=== PATIENT | male | born 1955 | race Caucasian/White ===

== ENCOUNTER → 2020-03-09 15:24 | Outpatient (CLI) | payer OTHER, MEDICAID, SELFPAY | PROVIDERS: Visit Provider Physician Assistant | DX: N30.01 Acute cystitis with hematuria (principal) | CPT/HCPCS: 87077; 87086; 87186 ==

== ENCOUNTER → 2020-11-16 16:14 | Outpatient (CLI) | payer OTHER, MEDICAID, SELFPAY ==
[2020-11-16] MEDS: COVID-19 VACC #1, MRNA(MOD) 100 MCG/0.5 ML VIAL IM (16:22)
== END ==
PROVIDERS: Visit Provider Internal Medicine
DX: Z23 Encounter for immunization (principal)
CPT/HCPCS: 0011A; 91301

== ENCOUNTER → 2020-12-14 09:34 | Outpatient (CLI) | payer OTHER, MEDICAID, SELFPAY ==
[2020-12-14] MEDS: COVID-19 VACC #2, MRNA(MOD) 100 MCG/0.5 ML VIAL IM (09:46)
== END ==
PROVIDERS: Visit Provider Internal Medicine
DX: Z23 Encounter for immunization (principal)
CPT/HCPCS: 0012A; 91301

== ENCOUNTER 2022-06-03 12:16 | Inpatient (IN) | payer MEDICARE, MEDICAID, SELFPAY ==
[2022-06-03] VITALS (14 sets, daily range): BP systolic 126–187; BP diastolic 55–83; PULSE 63–85; RESP 18–28; TEMP 36.8–37.4; O2SAT 91–100; BMI 25.1
--- NOTE | 2022-06-03 12:49 | ED.MALEGU ---
HPI - Male Genitourinary General Chief complaint: Urogenital-Male Stated complaint: Bladder pain, hx enlarged prostate Time Seen by Provider: 06/03/22 12:48 Source: patient Mode of arrival: Ambulatory Limitations: no limitations History of Present Illness HPI Narrative: This is a 66-year-old male with likely but not formally diagnosed COPD continues to tobacco, BPH on saw palmetto and Advil daily. Patient states he is had pelvic pain for the last several days which has been increasing, he denies fevers or chills. No active nausea or vomiting. He states several days ago he had about 12 hours of frequent diarrhea that was not black or bloody since then he had some additional yesterday and has not had any additional since then. Patient states he occasionally has issues with stopping starting urination but has not noticed a worsening over the last several days, no dysuria, no frequency or sense of urgency. Patient denies rectal pain. Patient states no back or flank pain. He denies any major surgeries. He does use tobacco daily, denies illicit. Related Data Allergies Allergy/AdvReac Type Severity Reaction Status Date / Time morphine Allergy Intermediate Verified 03/09/20 14:51 Review of Systems Review of Systems ROS Unobtainable: All systems reviewed & are unremarkable except as noted in HPI and below Patient History Social History Smoking Status: Current every day smoker Smoking Status: Current every day smoker Substance Use Type: does not use Exam Narrative Exam Narrative: GENERAL: Alert and oriented x three, mild distress HEENT: Head normocephalic, atraumatic, EOMI, pupils reactive, face symmetric, moist mucous membranes NECK: Supple, full range of motion CARDIOVASCULAR: Regular rate and rhythm without murmurs, rubs or gallops. RESPIRATORY: Breath sounds equal bilaterally, no wheezes rales or rhonchi. ABDOMEN: Soft, positive for right lower quadrant which is moderate tenderness and mild pelvic tenderness. Normoactive bowel sounds all 4 quadrants. No guarding or rebound, rigidity, no mass. Nondistended. No inguinal hernia appreciated. : No CVA tenderness EXTREMITIES: Normal range of motion, no clubbing or edema. Neurovascularly intact NEUROLOGICAL: Cranial nerves II through XII grossly intact. Moving all extremities SKIN: Warm, dry, no petechiae, no rashes or lesions. Initial Vital Signs Initial Vital Signs: Vital Signs Temperature 98.3 F 06/03/22 12:28 Pulse Rate 85 06/03/22 12:28 Respiratory Rate 22 06/03/22 12:28 Blood Pressure 185/83 H 06/03/22 12:28 Pulse Oximetry 100 06/03/22 12:28 Oxygen Delivery Method 06/03/22 12:28 Course Orders Ordered: ED Orders 06/03/22 13:15 CT abdomen pelvis w con Stat CMP [Comprehensive Metabolic Panel] Stat Lipase Stat 06/03/22 13:50 CBC Auto Diff [Complete Blood Count AUTO DIFF] Stat Ictotest Urine Stat 06/03/22 14:04 Urine Culture Stat Urine Microscopic Stat 06/03/22 14:46 Blood Culture Stat Lactate (Lactic Acid) Stat 06/03/22 17:22 COVID19 -Nasal RAPID/Pre-Proc Stat Discontinued Medications Acetaminophen/Codeine Phosphate (Codeine/Acetaminophen 30/300 Tablet) 1 tab PO NOW ONE Stop: 06/03/22 17:10 Albuterol/Ipratropium (Albuterol/Ipratropium 3 Ml Ampul) 3 ml INH NOW ONE Stop: 06/03/22 15:16 Sodium Chloride (Normal Saline 0.9%) 1,000 mls @ 1,000 mls/hr IV BOLUS ONE Stop: 06/03/22 14:15 Last Admin: 06/03/22 14:20 Dose: 1,000 mls/hr Documented By: CASE Ceftriaxone Sodium 2,000 mg/ (Sodium Chloride) 100 mls @ 200 mls/hr IV NOW ONE Stop: 06/03/22 14:48 Last Infusion: 06/03/22 16:31 Dose: 0 mls/hr Documented By: Admin: 06/03/22 15:34 Dose: 200 mls/hr Documented By: RL Metronidazole (Flagyl) 500 mg in 100 mls @ 100 mls/hr IV NOW ONE Stop: 06/03/22 16:34 Last Admin: 06/03/22 16:31 Dose: 100 mls/hr Documented By: BT Consultations Consultation #1: Rads called CT findings to myself.? Certainly possible appendicitis, diverticulitis with possible abscess collection and appears to have 1 diverticulum that may communicate with the sigmoid bladder there is a single focus of air making this suspicious Time: 15:37 Consultation #2: Dr. Holloway, general surgery. Recommends IV antibiotics discussed patient has had Rocephin, Flagyl. She recommends is comfortable with this coverage but Cipro Flagyl or Zosyn Flagyl would also be appropriate. At this time recommends IV antibiotics to start, Carlos catheter if needed and decompression unlikely to require surgical intervention but if not improving or after several days of treatment has persistent change consistent with fistula then may require involvement of Urology. States DVT prophylaxis can be initiated. She would ask if patient can be admitted to medicine. Consultation #3: Urology, Dr. Duenas [facility]: Agrees with recommendations from general surgery and plan for IV antibiotics and re-evaluation. States patient surgery would really be more general surgery purvey even if requiring surgical intervetion. Additional Consultation(s): Dr. Payne, hospitalist. would like to review with general surgery in case of potential need he will recontact if any need for transfer after talking with general surgery. SPoke with general surgery, accepts for inpatient admission. Vital Signs Vital signs: Vital Signs - 8 hr 06/03/22 12:28 06/03/22 14:21 06/03/22 14:30 Temperature 98.3 F Pulse Rate 85 67 Respiratory Rate 22 Blood Pressure 185/83 H 126/55 L Pulse Oximetry 100 99 Oxygen Delivery Method Room Air 06/03/22 14:30 06/03/22 15:00 06/03/22 15:30 Temperature Pulse Rate 67 70 70 Respiratory Rate Blood Pressure Pulse Oximetry 99 100 100 Oxygen Delivery Method 06/03/22 16:00 06/03/22 16:30 Temperature Pulse Rate 79 78 Respiratory Rate Blood Pressure Pulse Oximetry 99 99 Oxygen Delivery Method MDM - Male Genitourinary Lab Data Result diagrams: 06/03/22 13:50 06/03/22 13:15 Labs: Lab Results 06/03/22 06/03/22 06/03/22 Range/Units 13:15 13:50 13:50 WBC 20.3 H (4.5-11.0) X10^3/uL RBC 4.78 (4.5-5.9) X10^6/uL Hgb 14.1 (13.5-17.5) g/dL Hct 41.3 (41-53) % MCV 86.5 (80-100) fL MCH 29.5 (26-34) PG MCHC 34.0 (30-36) % RDW 14.5 (11.6-14.8) % Plt Count 213 (150-400) X10^3/uL Neut % (Auto) 85.1 H (50-75) % Lymph % (Auto) 8.6 L (25-40) % [place] % (Auto) 5.9 (3-14) % Eos % (Auto) 0.2 L (2-4) % Baso % (Auto) 0.2 (0-2) % Neut # (Auto) 13799 H (7615-6950) /uL Lymph # (Auto) 1800 (1973-7332) /uL [place] # (Auto) 1200 H (0-900) /uL Eos # (Auto) 0 (0-450) /uL Baso # (Auto) 0 (0-100) /uL Sodium 139 (137-145) mmol/L Potassium 3.8 (3.4-5.1) mmol/L Chloride 102 (98-107) mmol/L Carbon Dioxide 23 (22-32) mmol/L BUN 22 H (9-20) mg/dL Creatinine 1.12 (0.66-1.25) mg/dL Estimated GFR > 60 (>60) mL/min BUN/Creatinine Ratio 19.6 (6-22) Glucose 119 H (80-110) mg/dL Lactate (0.7-2.1) mmol/L Calcium 8.7 (8.4-10.2) mg/dL Total Bilirubin 0.6 (0.2-1.3) mg/dL AST 21 (17-59) IU/L ALT 18 (<50) IU/L Alkaline Phosphatase 83 (38-126) U/L Total Protein 7.9 (6.3-8.2) g/dL Albumin 4.0 (3.5-5.0) g/dL Globulin 3.9 (1.7-4.1) g/dL Albumin/Globulin Ratio 1.0 (1.0-2.8) Lipase 32 (23-300) U/L Ur Bilirubin Confirm Positive H (Negative) Urine RBC (0-5/HPF) Urine WBC (0-5/HPF) Urine Bacteria (None) Granular Casts (None) Urine Mucus (Negative) Ur Culture Indicated? 10/23/22 10/23/22 Range/Units 14:04 14:46 WBC (4.5-11.0) X10^3/uL RBC (4.5-5.9) X10^6/uL Hgb (13.5-17.5) g/dL Hct (41-53) % MCV (80-100) fL MCH (26-34) PG MCHC (30-36) % RDW (11.6-14.8) % Plt Count (150-400) X10^3/uL Neut % (Auto) (50-75) % Lymph % (Auto) (25-40) % [place] % (Auto) (3-14) % Eos % (Auto) (2-4) % Baso % (Auto) (0-2) % Neut # (Auto) (9150-0292) /uL Lymph # (Auto) (3951-7051) /uL [place] # (Auto) (0-900) /uL Eos # (Auto) (0-450) /uL Baso # (Auto) (0-100) /uL Sodium (137-145) mmol/L Potassium (3.4-5.1) mmol/L Chloride (98-107) mmol/L Carbon Dioxide (22-32) mmol/L BUN (9-20) mg/dL Creatinine (0.66-1.25) mg/dL Estimated GFR (>60) mL/min BUN/Creatinine Ratio (6-22) Glucose (80-110) mg/dL Lactate 1.0 (0.7-2.1) mmol/L Calcium (8.4-10.2) mg/dL Total Bilirubin (0.2-1.3) mg/dL AST (17-59) IU/L ALT (<50) IU/L Alkaline Phosphatase (38-126) U/L Total Protein (6.3-8.2) g/dL Albumin (3.5-5.0) g/dL Globulin (1.7-4.1) g/dL Albumin/Globulin Ratio (1.0-2.8) Lipase (23-300) U/L Ur Bilirubin Confirm (Negative) Urine RBC 1-5/hpf (0-5/HPF) Urine WBC 10-30/hpf H (0-5/HPF) Urine Bacteria Many (>30) H (None) Granular Casts 1-5/lpf (None) Urine Mucus 1+ H (Negative) Ur Culture Indicated? Culture not indicate Urine Dip Bedside Urine Glucose Negative Bedside Urine Bilirubin + 1 Bedside Urine Ketone +/- 5 Urine Specific [place] 1.030 Bedside Urine Occult Blood + Bedside Urine pH 6.0 Bedside Urine Protein ++ 100 Bedside Urine Urobilinogen +/- 1mg Bedside Urine Nitrite + Positive Bedside Urine Leukocytes +/- [address] scan - abdomen/pelvis: Radiologist's Impression: Close Abdomen/Pelvis CT (Signed) Yael Skinner - 06/03/22 Launch?[place] [id number] CT Scan Report Signed Patient: Sonny Hitchcock MR#: [id number] : 1955 Acct:[id number] Age/Sex: 66 / M Date of Service: 06/03/22 Loc: ED Accession Number: [id number] ?? Procedure: CT abdomen pelvis w con Ordering Provider: Liliam Rouse D.O. PROCEDURE:? CT ABDOMEN PELVIS W CON ? INDICATIONS:? pelvic RLQ pain ? TECHNIQUE:? After the administration of intravenous contrast, axial sections acquired from the lung bases to the pubic symphysis.? Coronal and sagittal reformats were performed.? For radiation dose reduction, the following was used:? automated exposure control, adjustment of mA and/or kV according to patient size.? ? COMPARISON:? None. ? FINDINGS:? Image quality:? Excellent.? ? Lung bases:? Clear lung bases.? No hiatal hernia.? ? Heart:? Normal size heart without pericardial effusion. ? ABDOMEN: Liver:? No masses Gallbladder:? Normal wall thickness. Biliary ducts:? Nondilated. Pancreas:? Normal. Spleen:? Normal size. Adrenal Glands:? No nodules. Kidneys and Ureters:? Normal enhancement.? No hydronephrosis or hydroureter.? No calcifications. ? Stomach, Bowel and peritoneum:? There is considerable generalized fat stranding and inflammation throughout the lower abdomen and pelvis.? Small and large bowel heath are thickened and edematous.? The appendix is not well seen, potentially coursing posterior to the cecum amidst edema.? There is long segment wall thickening involving the entire sigmoid colon which has numerous diverticula.? Impacted diverticulum extends caudally towards the base of the bladder.? A small focus of intravesicular air suggests a colovesicular fistula.? There are a few small intraperitoneal peripherally enhancing fluid collections low anterior in the pelvis, the larger to the right of midline measuring 3.5 cm.? There is a peripherally enhancing wall.? Smaller is to the left of midline and more caudal without an enhancing wall. ? Proximally, the stomach is decompressed and there are a few small bowel loops with air-fluid levels.? Distally, the colon contains semi solid stool.? There is no free air in the abdomen.? No extraluminal gas visible. ? Ventral Wall: ? No hernias.? Abdominal Nodes:? There are several borderline periaortic retroperitoneal lymph nodes, probably reactive. Vessels:? Aorta and inferior vena cava are normal in size.? Moderate abdominal aortic atherosclerotic calcification.? ? PELVIS: Pelvic Organs:? Normal size prostate gland. Bladder:? Unremarkable.? ? Pelvic Nodes:? Borderline pelvic adenopathy including a 9 mm right external iliac node. Miscellaneous: No hernias are seen. ? ? ? Bones:? Unremarkable.? IMPRESSION:? ? 1. Generalized moderately severe inflammation and bowel wall thickening throughout the lower abdomen and pelvis, possibly related to ruptured acute appendicitis (more likely) and/or sigmoid diverticulitis. ? 2. Extensive diverticula present throughout the sigmoid colon including an impacted diverticulum which extends towards the anterior base of the urinary bladder.? Focus of air in the urinary bladder is highly suggestive of colovesicular fistula. ? 3. There are two discrete pelvic fluid collections anteriorly, the larger measuring up to 3.5 cm, adjacent to the cecum, and within enhancing wall suggestive of formed abscess. ? 4. Discussed with Dr. Liliam Rouse in the emergency room at 14:36 hours [place] daylight time.? ? ? Dictated by: Yael Skinner M.D. on 06/03/2022 at 14:20 ? ? Approved by: Yael Skinner M.D. on 06/03/2022 at 14:38?? [facility] Narrative Medical decision making narrative: This is a 66-year-old male with complaint of suprapubic discomfort, patient suspects he has a UTI he had 1 about 2 years ago when he was found to have an enlarged prostate. He does not feel that he is currently retaining. He on exam does have some mild suprapubic tenderness but is more tender in his right lower quadrant he is never had an appendectomy. Also had frequent diarrhea about 3 days ago. Discussed with patient my suspicion for other intra-abdominal process is higher, we will still check a urine would recommend labs and CT abdomen pelvis to rule out appendicitis versus diverticulitis, colitis or other acute process. Patient has a white count of 22, lactate is normal, renal function, abdominal labs do not show any acute intra-abdominal process. Urine is nitrite positive with 10-30 wbc's, many bacteria. CT shows possible appendicitis but talking to radiologist she is difficulty actually visualizing that secondary to significant inflammation of the cecum and: Patient does have diverticulitis and appears to have a fluid collection consistent with abscess she does appreciate 1 diverticulum that seems to connect to the bladder with a single focus of air. Patient had antibiotics started, held on 30 cc/kilos fluid bolus as patient does not currently meet septic criteria and did initiate antibiotics. Discussed with General surgery, we do not have Urology coverage today. They recommended IV antibiotics, decompression of bladder and re-evaluation over the next day or so both Dr. Holloway and Dr. Duenas from [facility] to more fully evaluate if true fistula, allow antibiotics to decrease inflammation and then revisit if patient requires surgical intervention. Patient appears nontoxic, is not septic today. Discussed with hospitalist who also reviewed everything with the general surgeon and accepts for inpatient admission. Discharge Plan Departure Patient Disposition: Admitted As Inpatient Clinical Impression: Abdominal abscess, UTI (urinary tract infection), Diverticulitis, [place]-vesical fistula Admit Date/Time: 06/03/22 16:55 Admit Provider: Kervin Payne
--- NOTE | 2022-06-03 13:15 | DI.CT.S_ITS ---
PROCEDURE: CT ABDOMEN PELVIS W CON INDICATIONS: pelvic RLQ pain TECHNIQUE: After the administration of intravenous contrast, axial sections acquired from the lung bases to the pubic symphysis. Coronal and sagittal reformats were performed. For radiation dose reduction, the following was used: automated exposure control, adjustment of mA and/or kV according to patient size. COMPARISON: None. FINDINGS: Image quality: Excellent. Lung bases: Clear lung bases. No hiatal hernia. Heart: Normal size heart without pericardial effusion. ABDOMEN: Liver: No masses Gallbladder: Normal wall thickness. Biliary ducts: Nondilated. Pancreas: Normal. Spleen: Normal size. Adrenal Glands: No nodules. Kidneys and Ureters: Normal enhancement. No hydronephrosis or hydroureter. No calcifications. Stomach, Bowel and peritoneum: There is considerable generalized fat stranding and inflammation throughout the lower abdomen and pelvis. Small and large bowel heath are thickened and edematous. The appendix is not well seen, potentially coursing posterior to the cecum amidst edema. There is long segment wall thickening involving the entire sigmoid colon which has numerous diverticula. Impacted diverticulum extends caudally towards the base of the bladder. A small focus of intravesicular air suggests a colovesicular fistula. There are a few small intraperitoneal peripherally enhancing fluid collections low anterior in the pelvis, the larger to the right of midline measuring 3.5 cm. There is a peripherally enhancing wall. Smaller is to the left of midline and more caudal without an enhancing wall. Proximally, the stomach is decompressed and there are a few small bowel loops with air-fluid levels. Distally, the colon contains semi solid stool. There is no free air in the abdomen. No extraluminal gas visible. Ventral Wall: No hernias. Abdominal Nodes: There are several borderline periaortic retroperitoneal lymph nodes, probably reactive. Vessels: Aorta and inferior vena cava are normal in size. Moderate abdominal aortic atherosclerotic calcification. PELVIS: Pelvic Organs: Normal size prostate gland. Bladder: Unremarkable. Pelvic Nodes: Borderline pelvic adenopathy including a 9 mm right external iliac node. Miscellaneous: No hernias are seen. Bones: Unremarkable. IMPRESSION: 1. Generalized moderately severe inflammation and bowel wall thickening throughout the lower abdomen and pelvis, possibly related to ruptured acute appendicitis (more likely) and/or sigmoid diverticulitis. 2. Extensive diverticula present throughout the sigmoid colon including an impacted diverticulum which extends towards the anterior base of the urinary bladder. Focus of air in the urinary bladder is highly suggestive of colovesicular fistula. 3. There are two discrete pelvic fluid collections anteriorly, the larger measuring up to 3.5 cm, adjacent to the cecum, and within enhancing wall suggestive of formed abscess. 4. Discussed with Dr. Liliam Rouse in the emergency room at 14:36 hours [place] daylight time. Dictated by: Yael Skinner M.D. on 06/03/2022 at 14:20 Approved by: Yael Skinner M.D. on 06/03/2022 at 14:38
[2022-06-03] MEDS: SODIUM CHLORIDE 0.9% 1,000 ML 1000 ML IV (14:20)
[2022-06-03 14:26] LABS: Add Manual Diff / Slide Review NO; Basophils Absolute Auto 0 /uL (0-100); Basophils Percent Auto 0.2 % (0-2); Eosinophils Absolute Auto 0 /uL (0-450); Eosinophils Percent Auto 0.2 % (2-4); Hematocrit 41.3 % (41-53); Hemoglobin 14.1 g/dL (13.5-17.5); Lymphocytes Absolute Auto 1800 /uL (1100-4500); Lymphocytes Percent Auto 8.6 % (25-40); Mean Corpuscular Hemoglobin 29.5 PG (26-34); Mean Corpuscular Volume 86.5 fL (80-100); Monocytes Absolute Auto 1200 /uL (0-900); Monocytes Percent Auto 5.9 % (3-14); Neutrophils Absolute Auto 17300 /uL (1500-7000); Neutrophils Percent Auto 85.1 % (50-75); Platelet Count 213 X10^3/uL (150-400); Red Blood Cell Count 4.78 X10^6/uL (4.5-5.9); Red Cell Distribution Width 14.5 % (11.6-14.8); White Blood Cell Count 20.3 X10^3/uL (4.5-11.0)
[2022-06-03 14:33] LABS: Alanine Aminotransferase 18 IU/L (<50); Alkaline Phosphatase 83 U/L (38-126); Aspartate Aminotransferase 21 IU/L (17-59); BUN Creatinine Ratio 19.6 (6-22); Bilirubin Total 0.6 mg/dL (0.2-1.3); Blood Urea Nitrogen 22 mg/dL (9-20); Calcium 8.7 mg/dL (8.4-10.2); Carbon Dioxide 23 mmol/L (22-32); Chloride 102 mmol/L (98-107); Estimated Glomerular Filt Rate > 60 mL/min (>60); Globulin 3.9 g/dL (1.7-4.1); Glucose 119 mg/dL (80-110); HEMOLYSIS < 15 (0-50); Lipase 32 U/L (23-300); Potassium 3.8 mmol/L (3.4-5.1); Sodium 139 mmol/L (137-145); Total Protein 7.9 g/dL (6.3-8.2)
[2022-06-03 14:52] LABS: Bacteria Urine Many (>30); Granular Casts Urine 1-5/LPF; Mucus Urine 1+ (Negative); RBC Urine 1-5/HPF (0-5/HPF); WBC Urine 10-30/HPF (0-5/HPF)
[2022-06-03 14:53] LABS: Ictotest Urine Positive (Negative)
[2022-06-03] MEDS: cefTRIAXone 2,000 MG in SODIUM CHLORIDE 0.9% 100 ML 200 MG IV (15:34)
[2022-06-03] MEDS: metroNIDAZOLE 500 MG/100 ML PIGGYBACK 100 MG IV (16:31)
--- NOTE | 2022-06-03 17:54 | PM.HP.1 ---
History of Present Illness History of Present Illness Date Patient Seen: 06/03/22 Time Patient Seen: 18:00 Chief complaint: Bladder pain, hx enlarged prostate Narrative: This is a 66 year old male with BPH (on saw palmetto but no formal diagnosis, and who has not seen a primary care provider in many years) who presented with 3 days of abdominal pain. He describes a suprapubic sharp, constant pain that started on Saturday and has been continuing to worsen. He denies any radiation. Worsened pain with movement and did try some advil which helped at least some with the discomfort. He had a urinary tract infection two years ago that had similar symptoms so that's what brought him to the ER today. He denies nausea or vomiting. He had an episode of diarrhea when the pain started but no bowel movements since. He denies melena, hematochezia. He has had no fever, chills, or rash. He denies dysuria, recent urinary frequency (other than usual intermittent BPH symptoms of nocturia and slow stream). In the emergency room, his vital signs were notable for HTN, though this improved without medication and suspect this was in the setting of pain. Lab evaluation was notable for a leukocytosis with WBC 20.3, but other results including chemistry panel were unremarkable. UA was positive for infection. CT abdomen showed severe thickening of the bowel wall through the lower abdomen and extensive diverticulae with possible colovesicular fistula, along with two pelvic abscesses, largest of which were 3.5 cm. ER consultation with general surgery and urology recommended admission to medical service for IV antibiotics and non-surgical management at this time. 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 Patient History Medical History (Updated 06/03/22 @ 17:55 by Kervin Payne DO) Hiatal hernia Surgical History (Updated 06/03/22 @ 17:55 by Kervin Payne DO) No pertinent past surgical history Family & Social History Family History (Updated 06/03/22 @ 17:56 by Kervin Payne DO) Sister Hypertension Mother ESRD (end stage renal disease) on dialysis Father No pertinent past medical history Safety & Behavioral: Feels Safe in Current Yes Environment Been Physically Hurt or No Threatened By a Person Tobacco & Substance use: Smoking Status Current every day smoker Substance Use Type does not use ETOH use: 2-3 drinks per week. Meds Home Medications and Allergies Home Medications Medication Instructions Recorded Confirmed Type saw ana rosaetto 160 mg capsule 160 mg PO DAILY 06/03/22 06/03/22 History Allergies Allergy/AdvReac Type Severity Reaction Status Date / Time morphine Allergy Intermediate Verified 03/09/20 14:51 Review of Systems Review of Systems Narrative: All other systems reviewed with the patient and are negative unless otherwise stated. Exam Vital Signs (past 8 hours): - 06/03/22 12:28 06/03/22 14:21 06/03/22 14:30 Temperature 98.3 F Pulse Rate 85 67 Respiratory Rate 22 Blood Pressure 185/83 H 126/55 L Pulse Oximetry 100 99 Oxygen Delivery Method Room Air 06/03/22 14:30 06/03/22 15:00 06/03/22 15:30 Temperature Pulse Rate 67 70 70 Respiratory Rate Blood Pressure Pulse Oximetry 99 100 100 Oxygen Delivery Method 06/03/22 16:00 06/03/22 16:30 06/03/22 17:01 Temperature Pulse Rate 79 78 63 Respiratory Rate Blood Pressure Pulse Oximetry 99 99 99 Oxygen Delivery Method 06/03/22 17:30 Temperature Pulse Rate 75 Respiratory Rate 18 Blood Pressure Pulse Oximetry 98 Oxygen Delivery Method Oxygen Delivery Method Room Air Narrative Exam Narrative: General:? Patient is well developed and well nourished, in no distress at this time. HEENT:? Normocephalic, atraumatic, extraocular muscles intact, oral pharynx is clear and mucous membranes are moist. Neck: supple and symmetric, trachea is midline, no cervical adenopathy. Negative for JVD Chest:? Normal AP diameter and contour without kyphoscoliosis, no tachypnea, equal chest rise bilaterally. Lungs:? CTA b/l no wheezing rhonchi or rales. Cardio:?RRR no m/r/g. Slightly distant heart sounds. Abdomen: S, suprapubic and RLQ tenderness, non-distended. Musculoskeletal:? Muscle strength and tone are equal within normal limits, no deformity. Extremities: No edema or joint effusions. No cyanosis or clubbing. Skin:? Pale,? Warm to touch,dry and intact without rashes, ulcerations or petechiae.? Neuro:? Alert and orientated x3,? sensation to touch intact in all extremities, no gross deficits noted of cranial nerves. Psych:? Patient has a well-kept appearance, appropriate affect, mental status attitude thought context and judgment are appropriate for age. Objective Imaging CT scan - abdomen: Radiologist's impression: 1. Generalized moderately severe inflammation and bowel wall thickening throughout the lower abdomen and pelvis, possibly related to ruptured acute appendicitis (more likely) and/or sigmoid diverticulitis. ? 2. Extensive diverticula present throughout the sigmoid colon including an impacted diverticulum which extends towards the anterior base of the urinary bladder.? Focus of air in the urinary bladder is highly suggestive of colovesicular fistula. ? 3. There are two discrete pelvic fluid collections anteriorly, the larger measuring up to 3.5 cm, adjacent to the cecum, and within enhancing wall suggestive of formed abscess. Labs Result Diagrams: 06/03/22 13:50 06/03/22 13:15 Labs: Laboratory Results - last 24 hr 06/03/22 06/03/22 06/03/22 13:15 13:50 13:50 WBC 20.3 H RBC 4.78 Hgb 14.1 Hct 41.3 MCV 86.5 MCH 29.5 MCHC 34.0 RDW 14.5 Plt Count 213 Neut % (Auto) 85.1 H Lymph % (Auto) 8.6 L [place] % (Auto) 5.9 Eos % (Auto) 0.2 L Baso % (Auto) 0.2 Neut # (Auto) 67263 H Lymph # (Auto) 1800 [place] # (Auto) 1200 H Eos # (Auto) 0 Baso # (Auto) 0 Sodium 139 Potassium 3.8 Chloride 102 Carbon Dioxide 23 BUN 22 H Creatinine 1.12 Estimated GFR > 60 BUN/Creatinine Ratio 19.6 Glucose 119 H Lactate Calcium 8.7 Total Bilirubin 0.6 AST 21 ALT 18 Alkaline Phosphatase 83 Total Protein 7.9 Albumin 4.0 Globulin 3.9 Albumin/Globulin Ratio 1.0 Lipase 32 Ur Bilirubin Confirm Positive H Urine RBC Urine WBC Urine Bacteria Granular Casts Urine Mucus Ur Culture Indicated? 06/03/22 06/03/22 14:04 14:46 WBC RBC Hgb Hct MCV MCH MCHC RDW Plt Count Neut % (Auto) Lymph % (Auto) [place] % (Auto) Eos % (Auto) Baso % (Auto) Neut # (Auto) Lymph # (Auto) [place] # (Auto) Eos # (Auto) Baso # (Auto) Sodium Potassium Chloride Carbon Dioxide BUN Creatinine Estimated GFR BUN/Creatinine Ratio Glucose Lactate 1.0 Calcium Total Bilirubin AST ALT Alkaline Phosphatase Total Protein Albumin Globulin Albumin/Globulin Ratio Lipase Ur Bilirubin Confirm Urine RBC 1-5/hpf Urine WBC 10-30/hpf H Urine Bacteria Many (>30) H Granular Casts 1-5/lpf Urine Mucus 1+ H Ur Culture Indicated? Culture not indicate Assessment & Plan Assessment & Plan narrative: 1. Acute diverticulitis with abscess and colovesicular fistula, present on admission. - okay for diet as tolerated - general surgery to formally consult tomorrow, but initial recommendation is for IV antibiotics at this time. - continue pain control, IV fluids for now - continue ceftriaxone and flagyl - follow up urine and blood cultures 2. Acute cystitis - likely secondary to colovesicular fistula, follow up urine culture. - will be treated likely with above antibiotics. 3. Tobacco use - will provide nicotine patch, counseled on cessation. 4. BPH - consider tamsulosin, will need to continue quiroz catheter given possible colovesicular fistulae for bladder decompression per discussions with urology and general surgery. Code: full, surrogate is patient's sister DVT: Lovenox Dispo: Admitted as inpatient given need for IV antibiotics beyond two midnights and to monitor response to therapy, potential for possible surgical interventions. I have utilized all available immediate resources to obtain, update, or review the patient's current medications. COVID-19 COVID-19 status: Result pending Time Spent With Patient Critical Care time: I spent a total of [] minutes of critical care time on this patient's care today; this time is exclusive of procedural time. Quality MIPS - Admit I confirm the patient?s Advance Care Plan is present, Code status is documented, Surrogate decision maker is in patient?s record [If Yes, STOP here]: Yes
[2022-06-03 18:42] LABS: COVID19 -Nasal RAPID Negative (Negative)
[2022-06-03] MEDS: SODIUM CHLORIDE 0.9% 1,000 ML 100 ML IV (18:57)
[2022-06-03] MEDS: NICOTINE 21 MG PATCH TOP (19:03)
[2022-06-03] MEDS: KETOROLAC 30 MG/ML VIAL 15 MG IV (19:03)
[2022-06-03] MEDS: ALBUTEROL/IPRATROPIUM 3 ML AMPUL INH (22:19)
[2022-06-04] VITALS (11 sets, daily range): BP systolic 129–180; BP diastolic 69–77; PULSE 71–78; RESP 18–19; TEMP 36.7–37.6; O2SAT 96–99
[2022-06-04] MEDS: metroNIDAZOLE 500 MG/100 ML PIGGYBACK 100 MG IV ×4 (00:19→23:40)
[2022-06-04] MEDS: KETOROLAC 30 MG/ML VIAL 15 MG IV ×3 (02:09→20:11)
--- NOTE | 2022-06-04 04:52 | PC.NURSE ---
Addendum entered by Gadiel Tipton R.N. 06/04/22 05:47: Urine output for shift is 250ml. Kami Becerra hospitalist notified, no new orders at this time. Original Note: Pt has smokers cough and exhalation wheezes. Diminished w/ crackles and wheezes on auscultation. AOx4. Abdomen is distended, non tender, and firm, pt denies distention. + flatus, no BM this shift. Pt states it hurts to cough so he has not been coughing. RN educated pt to not hold in coughs. Bed alarm is on, SBA to bedside commode as pt SOB w/ ambulation to bathroom. Pt denies pain unless moving/coughing.
[2022-06-04 04:56] LABS: Add Manual Diff / Slide Review NO; Basophils Absolute Auto 0 /uL (0-100); Basophils Percent Auto 0.1 % (0-2); Eosinophils Absolute Auto 0 /uL (0-450); Eosinophils Percent Auto 0.2 % (2-4); Hematocrit 33.8 % (41-53); Hemoglobin 11.5 g/dL (13.5-17.5); Lymphocytes Absolute Auto 1400 /uL (1100-4500); Mean Corpuscular Hemoglobin 29.4 PG (26-34); Mean Corpuscular Volume 86.6 fL (80-100); Monocytes Absolute Auto 1200 /uL (0-900); Monocytes Percent Auto 6.9 % (3-14); Neutrophils Absolute Auto 14500 /uL (1500-7000); Neutrophils Percent Auto 84.8 % (50-75); Platelet Count 190 X10^3/uL (150-400); Red Cell Distribution Width 14.3 % (11.6-14.8); White Blood Cell Count 17.1 X10^3/uL (4.5-11.0)
[2022-06-04 05:02] LABS: Blood Urea Nitrogen 20 mg/dL (9-20); Calcium 7.5 mg/dL (8.4-10.2); Carbon Dioxide 19 mmol/L (22-32); Chloride 108 mmol/L (98-107); Estimated Glomerular Filt Rate > 60 mL/min (>60); Glucose 175 mg/dL (80-110); HEMOLYSIS < 15 (0-50); Magnesium 1.7 mg/dL (1.6-2.3); Potassium 3.7 mmol/L (3.4-5.1); Sodium 135 mmol/L (137-145)
[2022-06-04] MEDS: SODIUM CHLORIDE 0.9% 1,000 ML 100 ML IV ×2 (05:39→15:56)
--- NOTE | 2022-06-04 07:15 | PM.PN.1 ---
Subjective Subjective Date Patient Seen: 06/04/22 Time Patient Seen: 15:05 Interval history: Pain improving with IV antibiotics. States he has had dysuria and suprapubic pain. Urine culture growing GNR likely E. coli. Patient notes he takes saw palmetto for BPH but he is willing to take flomax nightly due to his urinary retention. Exam Vital Signs (past 8 hours): - 06/04/22 00:29 06/04/22 02:00 06/04/22 03:27 Temperature 98.3 F 98.3 F Pulse Rate 78 Respiratory Rate 19 Blood Pressure 136/72 Pulse Oximetry 96 96 Oxygen Delivery Method Room Air Oxygen Flow Rate 0 06/04/22 06:00 Temperature Pulse Rate Respiratory Rate Blood Pressure Pulse Oximetry 96 Oxygen Delivery Method Room Air Oxygen Flow Rate Oxygen Delivery Method Room Air Oxygen Flow Rate 0 Narrative Exam Narrative: GEN: no acute distress, sleeping soundly on arrival to room HEENT: moist mucous membranes, PERRL NECK: trachea midline, no JVD CV: regular rate and rhythm, no murmurs PULM: clear bilaterally ABD: mildly distended, tenderness to RLQ and suprapubic region, no organomegaly EXT: warm and well perfused with no edema NEURO: awake, alert, oriented, no focal deficits Objective Labs Result Diagrams: 06/04/22 04:30 06/04/22 04:30 Labs: Laboratory Results - last 24 hr 06/03/22 06/03/22 06/03/22 13:15 13:50 13:50 WBC 20.3 H RBC 4.78 Hgb 14.1 Hct 41.3 MCV 86.5 MCH 29.5 MCHC 34.0 RDW 14.5 Plt Count 213 Neut % (Auto) 85.1 H Lymph % (Auto) 8.6 L [place] % (Auto) 5.9 Eos % (Auto) 0.2 L Baso % (Auto) 0.2 Neut # (Auto) 81313 H Lymph # (Auto) 1800 [place] # (Auto) 1200 H Eos # (Auto) 0 Baso # (Auto) 0 Sodium 139 Potassium 3.8 Chloride 102 Carbon Dioxide 23 BUN 22 H Creatinine 1.12 Estimated GFR > 60 BUN/Creatinine Ratio 19.6 Glucose 119 H Lactate Calcium 8.7 Magnesium Total Bilirubin 0.6 AST 21 ALT 18 Alkaline Phosphatase 83 Total Protein 7.9 Albumin 4.0 Globulin 3.9 Albumin/Globulin Ratio 1.0 Lipase 32 Ur Bilirubin Confirm Positive H Urine RBC Urine WBC Urine Bacteria Granular Casts Urine Mucus Ur Culture Indicated? SARS-CoV-2 (PCR) 06/03/22 06/03/22 06/03/22 14:04 14:46 18:00 WBC RBC Hgb Hct MCV MCH MCHC RDW Plt Count Neut % (Auto) Lymph % (Auto) [place] % (Auto) Eos % (Auto) Baso % (Auto) Neut # (Auto) Lymph # (Auto) [place] # (Auto) Eos # (Auto) Baso # (Auto) Sodium Potassium Chloride Carbon Dioxide BUN Creatinine Estimated GFR BUN/Creatinine Ratio Glucose Lactate 1.0 Calcium Magnesium Total Bilirubin AST ALT Alkaline Phosphatase Total Protein Albumin Globulin Albumin/Globulin Ratio Lipase Ur Bilirubin Confirm Urine RBC 1-5/hpf Urine WBC 10-30/hpf H Urine Bacteria Many (>30) H Granular Casts 1-5/lpf Urine Mucus 1+ H Ur Culture Indicated? Culture not indicate SARS-CoV-2 (PCR) Negative 06/04/22 06/04/22 04:30 04:30 WBC 17.1 H RBC 3.90 L Hgb 11.5 L Hct 33.8 L MCV 86.6 MCH 29.4 MCHC 34.0 RDW 14.3 Plt Count 190 Neut % (Auto) 84.8 H Lymph % (Auto) 8.0 L [place] % (Auto) 6.9 Eos % (Auto) 0.2 L Baso % (Auto) 0.1 Neut # (Auto) 09648 H Lymph # (Auto) 1400 [place] # (Auto) 1200 H Eos # (Auto) 0 Baso # (Auto) 0 Sodium 135 L Potassium 3.7 Chloride 108 H Carbon Dioxide 19 L BUN 20 Creatinine 0.91 Estimated GFR > 60 BUN/Creatinine Ratio 22.0 Glucose 175 H Lactate Calcium 7.5 L Magnesium 1.7 Total Bilirubin AST ALT Alkaline Phosphatase Total Protein Albumin Globulin Albumin/Globulin Ratio Lipase Ur Bilirubin Confirm Urine RBC Urine WBC Urine Bacteria Granular Casts Urine Mucus Ur Culture Indicated? SARS-CoV-2 (PCR) [facility] Medical History (Updated 06/03/22 @ 17:55 by Kervin Payne DO) Hiatal hernia Surgical History (Updated 06/03/22 @ 17:55 by Kervin Payne DO) No pertinent past surgical history Family History (Updated 06/03/22 @ 17:56 by Kervin Payne DO) Sister Hypertension Mother ESRD (end stage renal disease) on dialysis Father No pertinent past medical history Social History household members: family Smoking Status: Current every day smoker alcohol intake: current Assessment & Plan Assessment & Plan narrative: 1. Acute diverticulitis/appendicitis with abscess and colovesicular fistula, present on admission. -per CT abd pelvis on 06/03, with air in bladder suggestive of fistula -leukocytosis improving -general surgery consulted, recommending no surgical intervention at this time and IV abx alone -continue pain control, IV fluids for now -continue ceftriaxone and flagyl 2. Acute complicated cystitis -likely secondary to colovesicular fistula vs BPH, follow up urine culture. Growing GNR's likely E. coli currently. -will be treated with above antibiotics. 3. Tobacco use -will provide nicotine patch, counseled on cessation. 4. BPH -start tamsulosin, will need to continue quiroz catheter given possible colovesicular fistulae for bladder decompression per discussions with urology and general surgery. Code: full, surrogate is patient's sister DVT: Lovenox Dispo: Admitted as inpatient given need for IV antibiotics beyond two midnights and to monitor response to therapy, potential for possible surgical interventions. Home after. COVID-19 COVID-19 status: Result pending Time Spent With Patient Critical Care time: I spent a total of [] minutes of critical care time on this patient's care today; this time is exclusive of procedural time. Quality VTE Deep Vein Thrombosis/Pulmonary Embolism Present on Admission: No
[2022-06-04] MEDS: NICOTINE 21 MG PATCH TOP (09:17)
[2022-06-04] MEDS: ENOXAPARIN 40 MG/0.4 ML SYRINGE SUBCUT (09:18)
--- NOTE | 2022-06-04 09:33 | CM.DANOTE ---
Addendum entered by LYNDA Cordero 06/04/22 13:40: ADD: Per Surgeon Consult, currently no surgical intervention needed at this time and continue with IV-Abx and clear liquids. BF Original Note: Patient is a 66 yo male who was admitted on 06/03/22 for Abd Pain. Pt has [facility] and [facility] for insurance and his PCP is not listed. EMR was reviewed. Per MD, pt admitted with acute diverticulitis with abscess and fistula. Currently on IV-abx and NPO until Surgeon recommendations. Surgeon Consult Pending. SW met bedside with pt and explained role and pt confirms that he lives in [place] with his sister Shraddha Carty and is independent at baseline and does not use DME to ambulate. Pt is retired and is not currently established with a PCP as he has not needed a doctor in many years and last PCP was in [facility]. SW provided copy of PCP list for [place] as pt would prefer not to drive far and SW encouraged him to call today while awaiting POC as he will need to first schedule establish care appointment and will likely need outpt follow up. Pt agreeable. Pt denies any formal DPOA but states informally is his sister Shraddha right now. Pt denies any hx of HH or SNF either and does not anticipate needs at d/c at this time and likely sister to transport. Plan: SW to follow for Surgeon Consult today towards determining POC and any discharge planning needs identified. LYNDA Cordero Discharge Planning/Care Management CM Discharge Assessment Start: 06/04/22 09:32 Freq: Status: Active Protocol: Document 06/04/22 09:32 (Rec: 06/04/22 09:33 [id number]) Discharge Planning Assessment Assigned Insulation Supervisor LYNDA Balderas DPOA/Assigned Designee Name none, informally sister Shraddha Carty Advance Directives? No Advance Directives on File No History Provided By Patient,Medical Record Has Patient been admitted in last 30 No days? Prior Living Arrangements House Household Members family Comment Lives with sister Shraddha Type of transporation used prior to Drives own vehicle admit Independent with ADL's Yes Is patient alert and oriented? Yes Caregiver for Another No Barriers to Discharge No Discharge Plan Home Transportation Arrangement Likely sister can transport at d/c Referrals Initiated None needed Whiteboard Updated in Patient Room with Yes name and ext. # of Insulation Supervisor Review Status In Process Please Provide Date Initial DC 06/04/22 Assessment Was Performed Next Review Type Continued Stay Review
[2022-06-04] MEDS: MAGNESIUM CHLORIDE 64 MG TABLET 128 MG PO (11:41)
--- NOTE | 2022-06-04 13:03 | PM.CN ---
History of Present Illness Consult details Date Patient Seen: 06/04/22 Time Patient Seen: 13:03 Chief complaint: Bladder pain, hx enlarged prostate Narrative: Sonny is a 66-year-old man who presented to the emergency department last night with lower abdominal pain. He had an elevated white blood cell count. He had a CT scan which showed inflammation and abscesses in the pelvis with potential sources including the appendix or the sigmoid colon. Reports that he has had the sensation of pneumaturia in the past. He has never had a colonoscopy. He has felt much better since starting antibiotics. Meds Home Medications and Allergies Home Medications Medication Instructions Recorded Confirmed Type ibuprofen 200 mg tablet 400 mg PO Q6H PRN Pain (Scale 06/03/22 06/03/22 History Score 4-6) saw palmetto 160 mg capsule 160 mg PO DAILY 06/03/22 06/03/22 History Allergies Allergy/AdvReac Type Severity Reaction Status Date / Time morphine Allergy Intermediate Verified 03/09/20 14:51 Exam Vital Signs (past 8 hours): - 06/04/22 06:00 06/04/22 07:43 06/04/22 11:10 Temperature 98.1 F 98.1 F Pulse Rate 71 75 Respiratory Rate 18 18 Blood Pressure 135/69 129/74 Pulse Oximetry 96 99 96 Oxygen Delivery Method Room Air Oxygen Flow Rate 0 0 Oxygen Delivery Method Room Air Oxygen Flow Rate 0 Narrative Exam Narrative: Abdomen soft, no peritoneal findings Tenderness to deep palpation in the right and left lower quadrant Const General: No acute distress Objective Labs Result Diagrams: 06/04/22 04:30 06/04/22 04:30 Labs: Laboratory Results - last 24 hr 06/03/22 06/03/22 06/03/22 13:15 13:50 13:50 WBC 20.3 H RBC 4.78 Hgb 14.1 Hct 41.3 MCV 86.5 MCH 29.5 MCHC 34.0 RDW 14.5 Plt Count 213 Neut % (Auto) 85.1 H Lymph % (Auto) 8.6 L [place] % (Auto) 5.9 Eos % (Auto) 0.2 L Baso % (Auto) 0.2 Neut # (Auto) 22051 H Lymph # (Auto) 1800 [place] # (Auto) 1200 H Eos # (Auto) 0 Baso # (Auto) 0 Sodium 139 Potassium 3.8 Chloride 102 Carbon Dioxide 23 BUN 22 H Creatinine 1.12 Estimated GFR > 60 BUN/Creatinine Ratio 19.6 Glucose 119 H Lactate Calcium 8.7 Magnesium Total Bilirubin 0.6 AST 21 ALT 18 Alkaline Phosphatase 83 Total Protein 7.9 Albumin 4.0 Globulin 3.9 Albumin/Globulin Ratio 1.0 Lipase 32 Ur Bilirubin Confirm Positive H Urine RBC Urine WBC Urine Bacteria Granular Casts Urine Mucus Ur Culture Indicated? SARS-CoV-2 (PCR) 06/03/22 06/03/22 06/03/22 14:04 14:46 18:00 WBC RBC Hgb Hct MCV MCH MCHC RDW Plt Count Neut % (Auto) Lymph % (Auto) [place] % (Auto) Eos % (Auto) Baso % (Auto) Neut # (Auto) Lymph # (Auto) [place] # (Auto) Eos # (Auto) Baso # (Auto) Sodium Potassium Chloride Carbon Dioxide BUN Creatinine Estimated GFR BUN/Creatinine Ratio Glucose Lactate 1.0 Calcium Magnesium Total Bilirubin AST ALT Alkaline Phosphatase Total Protein Albumin Globulin Albumin/Globulin Ratio Lipase Ur Bilirubin Confirm Urine RBC 1-5/hpf Urine WBC 10-30/hpf H Urine Bacteria Many (>30) H Granular Casts 1-5/lpf Urine Mucus 1+ H Ur Culture Indicated? Culture not indicate SARS-CoV-2 (PCR) Negative 06/04/22 06/04/22 04:30 04:30 WBC 17.1 H RBC 3.90 L Hgb 11.5 L Hct 33.8 L MCV 86.6 MCH 29.4 MCHC 34.0 RDW 14.3 Plt Count 190 Neut % (Auto) 84.8 H Lymph % (Auto) 8.0 L [place] % (Auto) 6.9 Eos % (Auto) 0.2 L Baso % (Auto) 0.1 Neut # (Auto) 08584 H Lymph # (Auto) 1400 [place] # (Auto) 1200 H Eos # (Auto) 0 Baso # (Auto) 0 Sodium 135 L Potassium 3.7 Chloride 108 H Carbon Dioxide 19 L BUN 20 Creatinine 0.91 Estimated GFR > 60 BUN/Creatinine Ratio 22.0 Glucose 175 H Lactate Calcium 7.5 L Magnesium 1.7 Total Bilirubin AST ALT Alkaline Phosphatase Total Protein Albumin Globulin Albumin/Globulin Ratio Lipase Ur Bilirubin Confirm Urine RBC Urine WBC Urine Bacteria Granular Casts Urine Mucus Ur Culture Indicated? SARS-CoV-2 (PCR) [facility] Medical History (Updated 06/03/22 @ 17:55 by Kervin Payne DO) Hiatal hernia Surgical History (Updated 06/03/22 @ 17:55 by Kervin Payne DO) No pertinent past surgical history Family History (Updated 06/03/22 @ 17:56 by Kervin Payne DO) Sister Hypertension Mother ESRD (end stage renal disease) on dialysis Father No pertinent past medical history Social History household members: family Tobacco & Substance Use Smoking Status: Current every day smoker alcohol intake: current Assessment & Plan Assessment and plan (1) Abdominal abscess: Status: Acute Plan Abdominopelvic abscesses and inflammation which could be related to a perforated appendicitis or sigmoid colon diverticulitis. His admission of pneumaturia suggests a diverticular source. In either case recommend continuation of IV antibiotics. I would expect the process to resolve without a need for emergency surgery. He can start clear liquid diet. We can plan to schedule a outpatient colonoscopy 6 weeks after he recovers from this acute process. Time Spent With Patient Critical Care time: I spent a total of [] minutes of critical care time on this patient's care today; this time is exclusive of procedural time.
[2022-06-04] MEDS: cefTRIAXone 2,000 MG in SODIUM CHLORIDE 0.9% 100 ML 200 MG IV (15:55)
--- NOTE | 2022-06-04 16:39 | PC.NURSE ---
Patient given toradol earlier for some discomfort and helpful. He did not take dose at 1400 as he was soundly sleeping. BT are hypoactive x4, he is getting iv antibiotics that he is tolerating well. into see patient and states that they are not going to do surgery at this time. He will be back to see patient tomorrow.
--- NOTE | 2022-06-04 18:12 | PC.NURSE ---
Pt's BP elevated to 179/77, recheck was 180/72 HR 76. Pt reports no signs and symptoms. Notified provider. Recheck in the next hour and notify provider if still elevated.
[2022-06-04] MEDS: TAMSULOSIN 0.4 MG CAPSULE PO (20:11)
[2022-06-04] MEDS: MELATONIN 3 MG TABLET 6 MG PO (21:05)
--- NOTE | 2022-06-04 21:41 | PC.NURSE ---
Patient is alert and oriented. Breath sounds very diminished especially when exhales. Has late expiratory wheezing in bilateral UL. Denies SOB at rest but states he sometimes gets SOB w/exertion. Has chronic smoker's cough. RA sat is 99%. HRR but BP has been trending high and was 162/71 at last vitals check. Denies nausea. BT present and is passing flatus and had several liquid stools earlier today. Denies pain. Indwelling catheter is patent; urine is clear, janine. Is able to move himself in bed and up to BSC with SBA. Wearing bilateral calf SCD's. Fall risk score is moderate and bed alarm is activated.
[2022-06-05] VITALS (11 sets, daily range): BP systolic 129–175; BP diastolic 62–86; PULSE 64–77; RESP 18–19; TEMP 36.2–37.7; O2SAT 94–100
[2022-06-05] MEDS: KETOROLAC 30 MG/ML VIAL 15 MG IV ×4 (01:43→21:29)
[2022-06-05] MEDS: SODIUM CHLORIDE 0.9% 1,000 ML 100 ML IV (03:08)
[2022-06-05 06:30] LABS: Add Manual Diff / Slide Review NO; Basophils Absolute Auto 100 /uL (0-100); Basophils Percent Auto 0.4 % (0-2); Eosinophils Absolute Auto 100 /uL (0-450); Eosinophils Percent Auto 0.7 % (2-4); Hematocrit 31.8 % (41-53); Hemoglobin 10.7 g/dL (13.5-17.5); Lymphocytes Absolute Auto 1200 /uL (1100-4500); Lymphocytes Percent Auto 8.3 % (25-40); Mean Corpuscular HGB Conc 33.7 % (30-36); Mean Corpuscular Hemoglobin 29.1 PG (26-34); Mean Corpuscular Volume 86.5 fL (80-100); Monocytes Absolute Auto 1300 /uL (0-900); Monocytes Percent Auto 9.1 % (3-14); Neutrophils Absolute Auto 11900 /uL (1500-7000); Neutrophils Percent Auto 81.5 % (50-75); Platelet Count 200 X10^3/uL (150-400); Red Blood Cell Count 3.68 X10^6/uL (4.5-5.9); White Blood Cell Count 14.6 X10^3/uL (4.5-11.0)
[2022-06-05 06:38] LABS: BUN Creatinine Ratio 18.7 (6-22); Blood Urea Nitrogen 17 mg/dL (9-20); Calcium 7.5 mg/dL (8.4-10.2); Carbon Dioxide 21 mmol/L (22-32); Chloride 109 mmol/L (98-107); Estimated Glomerular Filt Rate > 60 mL/min (>60); Glucose 122 mg/dL (80-110); HEMOLYSIS < 15 (0-50); Magnesium 1.6 mg/dL (1.6-2.3); Potassium 3.7 mmol/L (3.4-5.1); Sodium 136 mmol/L (137-145)
--- NOTE | 2022-06-05 07:17 | PM.PN.1 ---
Subjective Subjective Date Patient Seen: 06/05/22 Time Patient Seen: 13:10 Interval history: Still with some LQ abd pain but manageable. Able to tolerate po intake. No other complaints. Exam Vital Signs (past 8 hours): - 06/05/22 02:00 06/05/22 02:00 06/05/22 04:20 Temperature 98.6 F 98.6 F Pulse Rate 77 69 Respiratory Rate 18 18 Blood Pressure 145/66 H 157/72 H Pulse Oximetry 96 96 98 Oxygen Delivery Method Room Air Oxygen Flow Rate 0 0 0 06/05/22 04:20 Temperature Pulse Rate Respiratory Rate Blood Pressure Pulse Oximetry 98 Oxygen Delivery Method Room Air Oxygen Flow Rate 0 Oxygen Delivery Method Room Air Oxygen Flow Rate 0 Narrative Exam Narrative: GEN: no acute distress, appears comfortable HEENT: moist mucous membranes, PERRL NECK: trachea midline, no JVD CV: regular rate and rhythm, no murmurs PULM: clear bilaterally ABD: mildly distended, tenderness to RLQ > LLQ EXT: warm and well perfused with no edema NEURO: awake, alert, oriented, no focal deficits Objective Labs Result Diagrams: 06/05/22 06:13 06/05/22 06:13 Labs: Laboratory Results - last 24 hr 06/05/22 06/05/22 06:13 06:13 WBC 14.6 H RBC 3.68 L Hgb 10.7 L Hct 31.8 L MCV 86.5 MCH 29.1 MCHC 33.7 RDW 14.0 Plt Count 200 Neut % (Auto) 81.5 H Lymph % (Auto) 8.3 L [place] % (Auto) 9.1 Eos % (Auto) 0.7 L Baso % (Auto) 0.4 Neut # (Auto) 38564 H Lymph # (Auto) 1200 [place] # (Auto) 1300 H Eos # (Auto) 100 Baso # (Auto) 100 Sodium 136 L Potassium 3.7 Chloride 109 H Carbon Dioxide 21 L BUN 17 Creatinine 0.91 Estimated GFR > 60 BUN/Creatinine Ratio 18.7 Glucose 122 H Calcium 7.5 L Magnesium 1.6 PFSH Medical History (Updated 06/03/22 @ 17:55 by Kervin Payne DO) Hiatal hernia Surgical History (Updated 06/03/22 @ 17:55 by Kervin Payne DO) No pertinent past surgical history Family History (Updated 06/03/22 @ 17:56 by Kervin Payne DO) Sister Hypertension Mother ESRD (end stage renal disease) on dialysis Father No pertinent past medical history Social History household members: family Smoking Status: Current every day smoker alcohol intake: current Assessment & Plan Assessment & Plan narrative: 1. Acute diverticulitis/appendicitis with abscess and colovesicular fistula, present on admission. -per CT abd pelvis on 06/03, with air in bladder suggestive of fistula -leukocytosis improving -general surgery consulted, recommending no surgical intervention at this time and IV abx alone -continue pain control, IV fluids for now -continue ceftriaxone and flagyl 2. Acute complicated cystitis -likely secondary to colovesicular fistula vs BPH, follow up urine culture. Growing pansensitive E. coli currently. -will be treated with above antibiotics. -will need 7 days to complete treatment course 3. Tobacco use -will provide nicotine patch, counseled on cessation. 4. BPH -start tamsulosin, will need to continue quiroz catheter given possible colovesicular fistulae for bladder decompression per discussions with urology and general surgery. Code: full, surrogate is patient's sister DVT: Lovenox Dispo: Admitted as inpatient given need for IV antibiotics beyond two midnights and to monitor response to therapy, potential for possible surgical interventions. Home after. COVID-19 COVID-19 status: Result pending Time Spent With Patient Critical Care time: I spent a total of [] minutes of critical care time on this patient's care today; this time is exclusive of procedural time. Quality VTE Deep Vein Thrombosis/Pulmonary Embolism Present on Admission: No
[2022-06-05] MEDS: NICOTINE 21 MG PATCH TOP (08:29)
[2022-06-05] MEDS: ENOXAPARIN 40 MG/0.4 ML SYRINGE SUBCUT (08:30)
[2022-06-05] MEDS: metroNIDAZOLE 500 MG/100 ML PIGGYBACK 100 MG IV ×2 (08:31→16:21)
[2022-06-05] MEDS: SODIUM CHLORIDE 0.9% 1,000 ML 125 ML IV ×2 (11:56→21:57)
[2022-06-05] MEDS: cefTRIAXone 2,000 MG in SODIUM CHLORIDE 0.9% 100 ML 200 MG IV (14:02)
[2022-06-05] MEDS: TAMSULOSIN 0.4 MG CAPSULE PO (21:30)
[2022-06-05] MEDS: MELATONIN 3 MG TABLET 6 MG PO (21:30)
[2022-06-05] MEDS: ACETAMINOPHEN 325 MG TABLET 650 MG PO (21:38)
[2022-06-06] MEDS: metroNIDAZOLE 500 MG/100 ML PIGGYBACK 100 MG IV ×2 (00:51→08:19)
[2022-06-06 02:00] VITALS: O2SAT 100
[2022-06-06] MEDS: KETOROLAC 30 MG/ML VIAL 15 MG IV ×2 (02:59→08:22)
[2022-06-06 03:35] VITALS: BP 164/78; PULSE 62; RESP 18; TEMP 36.4; O2SAT 100
[2022-06-06 06:00] VITALS: O2SAT 100
[2022-06-06 06:23] LABS: Add Manual Diff / Slide Review NO; Basophils Absolute Auto 0 /uL (0-100); Basophils Percent Auto 0.4 % (0-2); Eosinophils Absolute Auto 300 /uL (0-450); Eosinophils Percent Auto 2.4 % (2-4); Hematocrit 31.9 % (41-53); Hemoglobin 10.9 g/dL (13.5-17.5); Lymphocytes Absolute Auto 1200 /uL (1100-4500); Lymphocytes Percent Auto 11.1 % (25-40); Mean Corpuscular HGB Conc 34.1 % (30-36); Mean Corpuscular Hemoglobin 29.4 PG (26-34); Mean Corpuscular Volume 86.2 fL (80-100); Monocytes Absolute Auto 1200 /uL (0-900); Monocytes Percent Auto 10.5 % (3-14); Neutrophils Absolute Auto 8400 /uL (1500-7000); Neutrophils Percent Auto 75.6 % (50-75); Platelet Count 186 X10^3/uL (150-400); Red Cell Distribution Width 14.4 % (11.6-14.8); White Blood Cell Count 11.1 X10^3/uL (4.5-11.0)
--- NOTE | 2022-06-06 07:44 | P.DS_ITS ---
History of Present Illness History of Present Illness Date Patient Seen: 06/06/22 Time Patient Seen: 11:00 Chief complaint: Bladder pain, hx enlarged prostate Narrative: This is a 66 year old male with BPH (on [facility] but no formal diagnosis, and who has not seen a primary care provider in many years) who presented with 3 days of abdominal pain. He describes a suprapubic sharp, constant pain that started on Saturday and has been continuing to worsen. He denies any radiation. Worsened pain with movement and did try some advil which helped at least some with the discomfort. He had a urinary tract infection two years ago that had similar symptoms so that's what brought him to the ER today. He denies nausea or vomiting. He had an episode of diarrhea when the pain started but no bowel movements since. He denies melena, hematochezia. He has had no fever, chills, or rash. He denies dysuria, recent urinary frequency (other than usual intermittent BPH symptoms of nocturia and slow stream). In the emergency room, his vital signs were notable for HTN, though this improved without medication and suspect this was in the setting of pain. Lab evaluation was notable for a leukocytosis with WBC 20.3, but other results including chemistry panel were unremarkable. UA was positive for infection. CT abdomen showed severe thickening of the bowel wall through the lower abdomen and extensive diverticulae with possible colovesicular fistula, along with two pelvi c abscesses, largest of which were 3.5 cm. ER consultation with general surgery and urology recommended admission to medical service for IV antibiotics and non- surgical management at this time. 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 Discharge Providers Provider Date of admission: 06/03/22 16:55 Discharge Date: 06/06/22 Primary care physician: Dilan Clarke MD Consults: 06/03/22 18:54 Consult to General Surgery Routine Comment: Consulting Provider: Caitlin Holloway Reason for consultation: diverticulitis Discharge provider: Michael Pandey DO Summary Hospital Course Discharge Diagnosis: 1. Acute diverticulitis/appendicitis with abscess and colovesicular fistula, present on admission. -per CT abd pelvis on 06/03, with air in bladder suggestive of fistula -leukocytosis improving -general surgery consulted, recommending no surgical intervention at this time and IV abx alone -continue pain control, IV fluids for now -continued IV ceftriaxone and flagyl and dc on cipro and flagyl for 1 week -to f/u with gen surg in clinic for repeat CT and colonoscopy 2. Acute complicated cystitis ?-likely secondary to colovesicular fistula vs BPH, follow up urine culture. Growing pansensitive E. coli currently. ?-will be treated with above antibiotics. -will need 7 days to complete treatment course 3. Tobacco use ?-will provide nicotine patch, counseled on cessation. 4. BPH ?-start tamsulosin, will need to continue quiroz catheter given possible colovesicular fistulae for bladder decompression per discussions with urology and general surgery. Hospital Course: Patient admitted for abd pain, leukocytosis of 20 and dysuria and found to have acute diverticulitis vs appendicitis with small abscesses as well as possible colovesicular fistula with urinary retention. Quiroz placed and urine culture grew pansensitive E. coli. Gen surg consulted who recommended IV abx treatment alone and no surgery. Patient improved on IV rocephin and flagyl and WBC decreased to 11. Started on flomax and quiroz removed and he was able to void. Gen surg recommended po abx and f/u in clinic for repeat CT scan to assess abscesses in 1 week. Will also be scheduled for colonoscopy. Patient does not have a PCP so number provided for him to schedule at [facility] residency clinic. He will then be referred to urology for colovesicular fistula f/u. Time Spent with Patient Time spent: Greater than 30 minutes Exam Vital Signs (past 8 hours): - 06/06/22 02:00 06/06/22 06:00 06/05/22 23:55 Temperature 97.1 F L Pulse Rate 66 Respiratory Rate 18 Blood Pressure 129/62 Pulse Oximetry 100 100 100 Oxygen Delivery Method Room Air Room Air Oxygen Flow Rate 0 06/06/22 03:35 Temperature 97.5 F L Pulse Rate 62 Respiratory Rate 18 Blood Pressure 164/78 H Pulse Oximetry 100 Oxygen Delivery Method Oxygen Flow Rate 0 Oxygen Delivery Method Room Air Oxygen Flow Rate 0 Narrative Exam Narrative: GEN: no acute distress, appears comfortable HEENT: moist mucous membranes, PERRL NECK: trachea midline, no JVD CV: regular rate and rhythm, no murmurs PULM: clear bilaterally ABD: mildly distended, tenderness to RLQ > LLQ EXT: warm and well perfused with no edema NEURO: awake, alert, oriented, no focal deficits Objective Labs Result Diagrams: 06/06/22 06:04 06/06/22 08:13 Labs: Laboratory Results - last 24 hr 06/06/22 06:04 WBC 11.1 H RBC 3.70 L Hgb 10.9 L Hct 31.9 L MCV 86.2 MCH 29.4 MCHC 34.1 RDW 14.4 Plt Count 186 Neut % (Auto) 75.6 H Lymph % (Auto) 11.1 L [place] % (Auto) 10.5 Eos % (Auto) 2.4 Baso % (Auto) 0.4 Neut # (Auto) 8400 H Lymph # (Auto) 1200 [place] # (Auto) 1200 H Eos # (Auto) 300 Baso # (Auto) 0 PFSH Medical History (Updated 06/03/22 @ 17:55 by Kervin Payne DO) Hiatal hernia Surgical History (Updated 06/03/22 @ 17:55 by Kervin Payne DO) No pertinent past surgical history Family History (Updated 06/03/22 @ 17:56 by Kervin Payne DO) Sister Hypertension Mother ESRD (end stage renal disease) on dialysis Father No pertinent past medical history Social History household members: family Smoking Status: Current every day smoker alcohol intake: current Discharge Plan Discharge Plan Patient Disposition: Home Provider Discharge Comment: You were admitted for diverticulitis with possible appendicitis as well as a UTI. You received IV antibiotics and improved. General surgery wants to see you in clinic in a couple weeks to repeat a CT scan and arrange a colonoscopy. You also had urinary retention so I started you on flomax for this. Please get a referral from PCP to see urology as you may have a fistula or tract between your bladder and colon which is causing the UTI. You'll finish 1 week of oral antibiotics at home. Discharge orders & Medications Prescriptions: New tamsulosin [Flomax] 0.4 mg Capsule 0.4 mg PO BEDTIME Qty: 90 0RF ciprofloxacin HCl [Cipro] 500 mg tablet 500 mg PO Q12H 7 Days Qty: 14 0RF Rx Instructions: start on 06/07 metronidazole 500 mg tablet 500 mg PO TID 7 Days Qty: 21 0RF Rx Instructions: start on 06/07 as soon as you pickup from pharmacy, then with meals after that Continued saw palmetto 160 mg Capsule 160 mg PO DAILY ibuprofen 200 mg Tablet 400 mg PO Q6H PRN (Reason: Pain (Scale Score 4-6)) Follow up/Referrals: Yared Ace MD [Physician] - 06/20/22 9:15 am (06/20 @ 9:15 @ [facility] for a appointment with Dr Ace ) Visit Report/Discharge Packet Instructions: DI for Diverticulitis, DI for Urinary Tract Infection (UTI), DI for Urinary Retention in Men, Ciprofloxacin, Metronidazole, Tamsulosin Discharge Data Primary Care Provider: Dilan Clarke VTE Deep Vein Thrombosis/Pulmonary Embolism Present on Admission: No
[2022-06-06 07:50] VITALS: BP 167/83; PULSE 71; RESP 24; TEMP 36.8; O2SAT 98
[2022-06-06] MEDS: ENOXAPARIN 40 MG/0.4 ML SYRINGE SUBCUT (08:19)
[2022-06-06] MEDS: NICOTINE 21 MG PATCH TOP (08:20)
[2022-06-06 08:25] VITALS: O2SAT 98
[2022-06-06] MEDS: SODIUM CHLORIDE 0.9% 1,000 ML 125 ML IV (08:28)
[2022-06-06 08:54] LABS: BUN Creatinine Ratio 16.2 (6-22); Blood Urea Nitrogen 11 mg/dL (9-20); Calcium 7.5 mg/dL (8.4-10.2); Carbon Dioxide 18 mmol/L (22-32); Chloride 107 mmol/L (98-107); Estimated Glomerular Filt Rate > 60 mL/min (>60); Glucose 115 mg/dL (80-110); HEMOLYSIS < 15 (0-50); Magnesium 1.6 mg/dL (1.6-2.3); Potassium 3.3 mmol/L (3.4-5.1); Sodium 137 mmol/L (137-145)
[2022-06-06] MEDS: POTASSIUM CHLORIDE 20 MEQ TAB 40 MEQ PO (10:53)
[2022-06-06] MEDS: MAGNESIUM CHLORIDE 64 MG TABLET 128 MG PO (10:54)
--- NOTE | 2022-06-06 11:09 | PC.NURSE ---
Pt is dressed and ready for discharge home. IV has been removed. Pt has his personal vehicle here and is able to drive himself home (lives 4 blocks away). Is not presently on any narcotics. Went over d/c instructions with Pt-discussed d/c meds, time of last dose, reviewed stroke education, reminded Pt to take his full course of abx as directed and to drink plenty of fluids to prevent constipation or dehydration. Pt has a follow up appointment already made to follow up with Dr. Ace on 06/20 at 0915. Pt denies further questions and willl be taken out via w/c by [employer] to pov with all belongings.
== END 2022-06-06 11:27 | disposition home or self-care (01) | DRG 391 ==
LOC: ED 16:55 → AC 16:56
PROVIDERS: Admitting Provider Internal Medicine; Emergency Provider Emergency Medicine; PCP Family Medicine Sleep Medicine; Referring Provider Emergency Medicine; Visit Provider Internal Medicine
DX: K57.20 Diverticulitis of large intestine with perforation and abscess without bleeding (principal); K35.33 Acute appendicitis with perforation, localized peritonitis, and gangrene, with abscess; N32.1 Vesicointestinal fistula; N30.00 Acute cystitis without hematuria; L98.8 Other specified disorders of the skin and subcutaneous tissue; N40.1 Benign prostatic hyperplasia with lower urinary tract symptoms; R33.8 Other retention of urine; B96.20 Unspecified Escherichia coli [E. coli] as the cause of diseases classified elsewhere; Z72.0 Tobacco use; Z20.822 Contact with and (suspected) exposure to COVID-19
CPT/HCPCS: 36415; 74177; 80048; 80053; 81003; 81015; 83605; 83690; 83735; 85025; 87040; 87077; 87086; 87186; 87635; 94640; 96365; 96367; 99232; 99284; C9803; J0696; J1650; J1885; Q9967

== ENCOUNTER → 2022-06-13 09:42 | Outpatient (CLI) | payer OTHER, MEDICAID, SELFPAY ==
[2022-06-03 16:58] VITALS: BMI 25.1
--- NOTE | 2022-06-13 09:44 | DI.CT.S_ITS ---
PROCEDURE: CT ABDOMEN PELVIS W CON INDICATIONS: Perforated diverticulitis vs appendicitis TECHNIQUE: After the administration of oral and IV contrast, axial sections were acquired from the lung bases to the pubic symphysis. Coronal and sagittal reformats were performed. For radiation dose reduction, the following was used: automated exposure control, adjustment of mA and/or kV according to patient size. COMPARISON: [facility], CT, CT ABDOMEN PELVIS W CON, 06/03/2022, 14:37. FINDINGS: Image quality: Excellent. Lung bases: Unremarkable. Heart: No significant findings. ABDOMEN: Liver: Focal fatty infiltration at the falciform ligament. No suspicious lesion. Gallbladder: Not distended. Biliary ducts: Unremarkable. Pancreas: Unremarkable. Spleen: Unremarkable. Adrenal Glands: No nodule. Kidneys and Ureters: No hydronephrosis. Stomach and Bowel: Stomach is not distended. No small bowel obstruction. Interloop abscess in the lower midline abdomen measures approximately 7.5 x 6.3 x 3.4 cm, (5/40 and 2/58), increased. The collection is irregular with a thickened wall and contains gas. No oral contrast is seen within this collection. There is thickening of the sigmoid colon with diverticulosis. There is a focus of more discrete thickening and mural enhancement at the lower pelvis which emanates towards the urinary bladder, (5/41). The appendix is located in the right pelvis. The appendiceal wall is thickened, (2/64). The appendix abuts this area. Peritoneum: No gross pneumoperitoneum. No ascites. Ventral Wall: No hernia. Abdominal Nodes: No retroperitoneal or mesenteric adenopathy by size criteria. Shotty retroperitoneal lymph nodes. Vessels: Aorta and inferior vena cava are normal in size. Extensive calcified atherosclerotic plaque. PELVIS: Pelvic Organs: Unremarkable. Bladder: Mild thickening at the bladder dome. Adjacent tract. Possible focus of gas in the urinary bladder, (2/80). No stones. Pelvic Nodes: No enlarged lymph nodes. Miscellaneous: No inguinal hernias are seen. Area of thickening at the left inguinal canal is similar could be due to prior hernia repair with plug. Bones: No suspicious lesion. IMPRESSION: 1. Small bowel interloop abscess measuring 7.5 cm in the lower midline abdomen. This is favored to be a diverticular abscess which has tracked upwards. 2. Thickening of the sigmoid colon with diverticulitis. Sinus tract projecting towards the urinary bladder with a small focus of gas suspected in the urinary bladder. This is concerning for colovesicular fistula. 3. Inflammatory change about the appendix at the right pelvic sidewall. Favor secondary reactive rather than acute appendicitis. 4. Shotty retroperitoneal and mesenteric lymph nodes are felt to be reactive. Comment: Message was left in the office of Dr. Ace at time of dictation. Dictated by: Russ Tom M.D. on 06/13/2022 at 11:26 Approved by: Russ Tom M.D. on 06/13/2022 at 11:48
== END ==
PROVIDERS: PCP Family Medicine Sleep Medicine; Referring Provider Surgery; Visit Provider Surgery
DX: K63.0 Abscess of intestine (principal); K57.32 Diverticulitis of large intestine without perforation or abscess without bleeding
CPT/HCPCS: 74177; Q9967

== ENCOUNTER → 2022-07-24 11:16 | Outpatient (CLI) | payer OTHER, MEDICAID, SELFPAY ==
[2022-06-03 16:58] VITALS: BMI 25.1
--- NOTE | 2022-07-24 11:18 | DI.CT.S_ITS ---
PROCEDURE: CT ABDOMEN PELVIS W CON INDICATIONS: Abdominal abscess TECHNIQUE: After the administration of oral and intravenous contrast, axial sections were acquired from the lung bases to the pubic symphysis. Coronal and sagittal reformats were performed. For radiation dose reduction, the following was used: automated exposure control, adjustment of mA and/or kV according to patient size. COMPARISON:[facility], CT, CT ABDOMEN PELVIS W CON, 06/13/2022, 10:38. FINDINGS: Image quality: Excellent. Lung bases: Unremarkable. Heart: No significant findings. ABDOMEN: Liver: Mild diffuse hepatic steatosis. Gallbladder: Unremarkable. Biliary ducts: Unremarkable. Pancreas: Unremarkable. Spleen: Unremarkable. Adrenal Glands: Unremarkable. Kidneys and Ureters: Unremarkable. Stomach and Bowel: There is extensive sigmoid wall thickening over a long segment. Question underlying malignancy. Consider superficial spreading carcinoma in an area with extensive diverticulae. There is currently ache colovesical fistula with air in the bladder and thickening of the bladder wall. Peritoneum: Extensive previous interloop abscesses have all resolved. No abnormal intraperitoneal fluid. No free air. Ventral Wall: No hernia. Abdominal Nodes: No retroperitoneal or mesenteric adenopathy by size criteria. Vessels: Aorta and inferior vena cava are normal in size. PELVIS: Pelvic Organs: Unremarkable. Bladder: Colovesical fistula with cystitis and air in the bladder. Pelvic Nodes: No enlarged lymph nodes. Miscellaneous: No inguinal hernias are seen. Bones: Lumbar degenerative change. No lytic or blastic bony lesions. No compression fractures. IMPRESSION: 1. Resolution of extensive interloop abscesses. 2. Persistence of extensive diffuse proximal rectal and sigmoid wall thickening in the presence of diverticulosis, with a well-formed colovesical fistula. Consider underlying superficial spreading colon cancer as a possibility. Comment: Consider distal colonic resection versus colonoscopy to detect possible underlying malignancy prior to potential distal colonic resection. Dictated by: Levon Ambriz M.D. on 07/24/2022 at 19:16 Approved by: Levon Ambriz M.D. on 07/24/2022 at 19:25
[2022-07-24 11:54] LABS: BUN Creatinine Ratio 17.6 (6-22); Blood Urea Nitrogen 12 mg/dL (9-20); Calcium 8.8 mg/dL (8.4-10.2); Carbon Dioxide 28 mmol/L (22-32); Chloride 104 mmol/L (98-107); Estimated Glomerular Filt Rate > 60 mL/min (>60); Glucose 104 mg/dL (80-110); HEMOLYSIS < 15 (0-50); Potassium 4.6 mmol/L (3.4-5.1); Sodium 141 mmol/L (137-145)
== END ==
PROVIDERS: PCP Internal Medicine; Referring Provider Surgery; Visit Provider Surgery
DX: N32.1 Vesicointestinal fistula (principal); K65.1 Peritoneal abscess; N30.90 Cystitis, unspecified without hematuria; K57.30 Diverticulosis of large intestine without perforation or abscess without bleeding; K76.0 Fatty (change of) liver, not elsewhere classified
CPT/HCPCS: 36415; 74177; 80048; Q9967

== ENCOUNTER → 2022-07-31 10:07 | Outpatient (CLI) | payer OTHER, MEDICAID, SELFPAY ==
[2022-07-30 14:22] VITALS: BMI 25.1
[2022-07-31 12:00] LABS: COVID19 -Nasal RAPID Negative (Negative)
== END ==
PROVIDERS: PCP Internal Medicine; Visit Provider Surgery
DX: Z01.812 Encounter for preprocedural laboratory examination (principal); Z20.822 Contact with and (suspected) exposure to COVID-19
CPT/HCPCS: 87635; C9803

== ENCOUNTER 2022-08-02 07:09 | Day surgery (SDC) | payer OTHER, MEDICAID, SELFPAY ==
[2022-06-03 16:58] VITALS: BMI 25.1
[2022-07-30 14:22] VITALS: BMI 25.1
[2022-08-02 07:32] VITALS: BP 127/80; PULSE 69; RESP 16; TEMP 36.2; O2SAT 97; BMI 25.1
[2022-08-02] MEDS: LACTATED RINGERS 1,000 ML 42 ML IV (07:49)
--- NOTE | 2022-08-02 08:40 | PM.HP.1 ---
History of Present Illness History of Present Illness Date Patient Seen: 08/02/22 Time Patient Seen: 08:40 Chief complaint: Colonoscopy Narrative: Sonny had his CT scan recently which showed resolution of his diverticular abscess but remaining thickening of the sigmoid colon. He is here today for colonoscopy. He says he still feels some sensations in the left lower quadrant similar to his diverticular symptoms. Patient History Medical History (Updated 08/02/22 @ 07:31 by Mellisa Keenan RN) Hiatal hernia Psoriasiform dermatitis Psoriasiform dermatitis Surgical History No pertinent past surgical history Family & Social History Family History Sister Hypertension Mother ESRD (end stage renal disease) on dialysis Father No pertinent past medical history Social History: household members family Tobacco & Substance use: Tobacco type cigarettes Smoking Status Current every day smoker alcohol intake current alcohol intake frequency holiday/special occasion Substance Use Type does not use Meds Home Medications and Allergies Home Medications Medication Instructions Recorded Confirmed Type ibuprofen 200 mg tablet 400 mg PO Q6H PRN Pain (Scale 06/03/22 08/02/22 History Score 4-6) tamsulosin 0.4 mg capsule (Flomax) 0.4 mg PO BEDTIME #90 caps 06/06/22 08/02/22 Rx peg 3350-electrolytes 236 240 ml PO Q10M #4,000 mL 07/30/22 Rx gram-22.74 gram-6.74 gram-5.86 gram solution (Golytely) Allergies Allergy/AdvReac Type Severity Reaction Status Date / Time morphine Allergy Intermediate Verified 08/02/22 07:25 Exam Vital Signs (past 8 hours): - 08/02/22 07:32 Temperature 97.2 F L Pulse Rate 69 Respiratory Rate 16 Blood Pressure 127/80 Pulse Oximetry 97 Oxygen Delivery Method Room Air Oxygen Delivery Method Room Air Narrative Exam Narrative: No acute distress Abdomen soft without peritonitis Assessment & Plan Assessment and plan (1) Diverticulitis: Status: Acute Plan Plan for colonoscopy to rule out unexpected malignancy in preparation for upcoming surgery for diverticulitis. He understands the risks and benefits and would like to proceed. Time Spent With Patient Critical Care time: I spent a total of [] minutes of critical care time on this patient's care today; this time is exclusive of procedural time.
--- NOTE | 2022-08-02 09:05 | PM.OP.COLON ---
Operative Date/Time/Diagnoses Date of procedure: 08/02/22 Time of procedure: 09:05 Pre-op diagnosis: Diverticulitis Post-op diagnosis: same Procedure & Clinicians Study performed: Colonoscopy Same procedure as scheduled: Yes Surgeon: Yared Ace Procedure Notes Procedure in detail: Surgeon: Yared Ace MD Anesthesia: Bettie Andrade CRNA Procedure: The patient was brought to the endoscopy suite, placed in left lateral decubitus position. The patient was connected to monitoring devices. A time-out was performed. Sedation was administered. Once the patient was adequately sedated, a digital rectal exam was performed and was normal. The scope was then inserted and advanced to the cecum where the appendiceal orifice was identified and photographed. The scope was then slowly withdrawn over greater than 6 minutes. The mucosa was thoroughly inspected. There were no polyps noted. The sigmoid colon was notably inflamed and edematous but no obvious malignancies. Visualization was limited due to the narrowing of the lumen. The scope was retroflexed in the rectum. No other abnormalities were seen. The scope was straightened and removed. The patient was awakened and brought to recovery. Scope withdrawal time: 7 Sedation time: 13 EBL: 0 Findings: Diverticulitis Post-procedure Disposition: PACU
[2022-08-02 09:11] VITALS: BP 109/72; PULSE 67; RESP 22; TEMP 36.4; O2SAT 98
[2022-08-02 09:14] VITALS: BP 103/68; PULSE 61; RESP 16; O2SAT 98
[2022-08-02 09:19] VITALS: BP 111/68; PULSE 56; RESP 15; TEMP 36.1; O2SAT 100
[2022-08-02 09:24] VITALS: BP 112/73; PULSE 54; RESP 11; TEMP 36.1; O2SAT 99
[2022-08-02 09:37] VITALS: BP 126/81; PULSE 70; RESP 16; TEMP 36.3; O2SAT 99
== END 2022-08-02 10:00 | disposition home or self-care (01) ==
PROVIDERS: PCP Internal Medicine; Referring Provider Surgery; Visit Provider Surgery
PROC: 0DJD8ZZ Inspection of Lower Intestinal Tract, Via Natural or Artificial Opening Endoscopic (ICD-10-PCS; CPT 45378; principal; 2022-08-02 08:15)
DX: K57.32 Diverticulitis of large intestine without perforation or abscess without bleeding (principal)
CPT/HCPCS: 45378; J2704

== ENCOUNTER 2022-09-25 06:12 | Inpatient (IN) | payer OTHER, MEDICAID, SELFPAY ==
[2022-08-27 16:25] VITALS: BMI 25.1
[2022-09-20 15:13] VITALS: BMI 25.1
[2022-09-25] VITALS (16 sets, daily range): BP systolic 90–166; BP diastolic 47–88; PULSE 57–80; RESP 9–18; TEMP 36.1–36.7; O2SAT 93–100; BMI 25.1
--- NOTE | 2022-09-25 | PATH_ITS ---
[facility] Accession Number: [id number] No. of containers..02 Tissue . 01 Material submitted: . PART A: sigmoid colon - SIGMOID COLON PART B: appendix - APPENDIX . 01 Diagnosis: A. Sigmoid Colon, Sigmoid Colectomy: Segment of colon with diverticulosis and transmural defect, consistent with operative impression of vesicointestinal fistula. Four benign pericolonic lymph nodes. No evidence of neoplasm. . B. Appendix, Appendectomy: Appendix with no diagnostic abnormality. No active inflammation or neoplasm identified. MRV 10/01/2022 1252 Local . 01 Electronically signed: . Michael Lewis MD, PhD, Pathologist NPI- [id number] . 01 Gross description: . A. Received in formalin labeled with the patient's name, , and sigmoid colon, and consists of an unoriented fragment of colon measuring 12.3 cm in length by 3.9 cm in average diameter. One margin is inked blue, the opposite margin is inked black, and the mesenteric margin is inked green. The serosa is hemorrhagic and diffusely roughened. A possible full thickness defect is identified measuring 0.2 cm in diameter and is located 4.8 cm from the nearest black margin. This area and the adjacent serosa is inked orange. Opening the specimen reveals the aforementioned defect to extend through the entire wall. The remaining mucosa is smith to congested and velvety with grossly edematous folds. Several diverticula are identified measuring up to 0.7 cm deep. No polyps or lesions are identified, and the heath average 0.5 cm thick. Palpation reveals four pink-smith lymph node candidates ranging from 0.3 to 0.8 cm in greatest dimension. Web Assistant sections are submitted as follows: A1: Blue margin en face. A2: Web Assistant black margin en face. A3: Web Assistant green margin en face. A4: Area of full thickness defect. A5-A6: Diverticula. A7-A8: Web Assistant normal. A9: Two intact lymph node candidates. A10: Two differentially inked bisected lymph node candidates. B. Received in formalin labeled with the patient's name, , and appendix, and consists of a vermiform appendix measuring 8.0 x 0.6 cm with smith, slightly roughened serosa, and a small amount of mesoappendix extending out to 1.7 cm. No defects are grossly identified and the surgical margin is received closed with a black suture and is inked blue. Sectioning reveals a patent pinpoint lumen measuring 0.1 cm in diameter, and smith intact heath averaging 0.3 cm thick with no fecaliths or lesions identified. Web Assistant sections to include the surgical margin, one half of the bisected tip, and cross-sections are submitted in cassette B1. ([id number]) /[facility] 09/26/2022 [facility] Local . 01 Pathologist provided ICD-10: N32.1 . 01 CPT . 213867, [id number] Specimen Comment: A courtesy copy of this report has been sent to [phone] Performed at: 01 [facility] [address] [place] [address], [place], [place] [id number] MD Luis Alfredo Martinez MD Phone: [phone]
[2022-09-25 07:09] LABS: COVID19 -Nasal RAPID Negative (Negative)
[2022-09-25] MEDS: LACTATED RINGERS 1,000 ML 42 ML IV ×3 (07:12→13:02)
--- NOTE | 2022-09-25 07:43 | PM.HP.1 ---
History of Present Illness History of Present Illness Date Patient Seen: 09/25/22 Time Patient Seen: 07:43 Chief complaint: Laparoscopically Assisted Colectomy/Cysto w/ Cath Narrative: Sonny is here for his laparoscopic-assisted sigmoid colectomy. See documentation from May through August for details. He states that he has been feeling some aching discomfort in the right lower quadrant recently. Patient History Medical History (Updated 09/20/22 @ 15:27 by Natalie Ellison RN) Asthma GERD (gastroesophageal reflux disease) Hiatal hernia History of asthma History of COPD History of diverticulitis Medication reaction Psoriasiform dermatitis Psoriasiform dermatitis Psoriasis Shortness of breath Surgical History (Updated 09/20/22 @ 15:27 by Natalie Ellison RN) Hx of hernia repair Hx of knee surgery Hx of tonsillectomy Family & Social History Family History Sister Hypertension Mother ESRD (end stage renal disease) on dialysis Father No pertinent past medical history Social History: household members family Tobacco & Substance use: Tobacco type cigarettes Smoking Status Current every day smoker alcohol intake current alcohol intake frequency holiday/special occasion Substance Use Type does not use Meds Home Medications and Allergies Home Medications Medication Instructions Recorded Confirmed Type tamsulosin 0.4 mg capsule 0.4 mg PO DAILY 09/20/22 09/25/22 History nicotine 14 mg/24 hr daily 1 patch transdermal Q24H 09/25/22 09/25/22 History transdermal patch Allergies Allergy/AdvReac Type Severity Reaction Status Date / Time morphine Allergy Intermediate Verified 09/25/22 06:51 Exam Vital Signs (past 8 hours): - 09/25/22 06:59 Temperature 97.2 F L Pulse Rate 57 L Respiratory Rate 16 Blood Pressure 151/74 H Pulse Oximetry 100 Oxygen Delivery Method Room Air Oxygen Delivery Method Room Air Const General: No acute distress Resp Effort & Inspection: normal respiratory effort GI Palpation: soft Objective Labs Labs: Laboratory Results - last 24 hr 09/25/22 06:45 SARS-CoV-2 (PCR) Negative Assessment & Plan Assessment and plan (1) [place]-vesical fistula: Status: Acute (2) Diverticulitis: Status: Acute Plan 67-year-old man with chronic recurrent diverticulitis and a colovesicular fistula. Plan to proceed with laparoscopic-assisted sigmoid colectomy with ureteral stent placement by Urology. Time Spent With Patient Critical Care time: I spent a total of [] minutes of critical care time on this patient's care today; this time is exclusive of procedural time.
[2022-09-25] MEDS: AMPICILLIN/SULBACTAM 3 GM 3 GM in SODIUM CHLORIDE 0.9% 100 ML IV ×2 (07:50→16:41)
--- NOTE | 2022-09-25 07:50 | PM.PREOP ---
Pre-operative Note COVID-19 COVID-19 status: Not tested Criteria for continued procedure: Non-surgical alternatives not available or appropriate per current SOC Interval Note History & Physical reviewed/Exam performed by Physician: Yes Changes to H&P: No
--- NOTE | 2022-09-25 08:48 | PM.OP.1 ---
Procedure & Clinicians Procedure: Cystoscopy with bilateral ureteral catheter placement and Carlos catheter placement. Same procedure as scheduled: Yes Indications: This 67-year-old man has a known colovesical fistula at presents this time for general surgical treatment. Dr. Ace has requested that ureteral stents be placed to protect and help identify the ureters. Surgeon: Jose J Villalba Click Yes if Unassisted: Yes Anesthesia Type: General Operative Notes Findings: Urethra and urethral meatus normal urethral mucosa is normal. Prostate shows moderate obstructive character with a high bladder neck. Ureteral orifices were somewhat laterally placed but have clear efflux. In the left lateral dome there is clear evidence of fistula some vegetable matter as noted in the area. There are no other abnormalities within the bladder. [place]teen [place] 5 cc Carlos catheter was left in place with 14 cc in the balloon. The ureteral catheters lighted were left in place in the right and left ureter. Closure Type: not applicable Specimen(s): none sent Applied: catheter ([place] 5 cc Carlos with 14 cc in the balloon) and other (Lighted ureteral catheters right and left) Estimated Blood Loss (mL): 0 Blood products transfused: none Procedure in detail: Procedure in detail: After informed consent was obtained, the patient was identified and brought to the operating room. Was placed in a supine position on the table where anesthesia was induced and maintained. Ensuring an adequate level of anesthesia the patient was transitioned to the lithotomy position. Once in the lithotomy position he was prepped, draped and prepared for Transurethral procedure. After prepping draping time-out and ensuring an adequate level of anesthesia 22 Citizen [place] cystoscope was passed through the urethra prostate and in the bladder were cystoscopy is performed. The right ureteral orifice was identified and a lighted ureteral catheter sheath was passed up and into the collecting system without difficulty. On the left a wire was used to and passed up into the collecting system. The ureteral catheter sheath was then passed over the wire and the wire removed the catheters were left in place. And the cystoscope was removed. A 16 [place] coude-tip catheter was then passed alongside the stents into the bladder with the balloon was filled with 10 cc of sterile water and the catheter was placed to gravity drainage. The fiberoptic core were then passed up and into age sheath. There was a bevel on the end which caused the fiberoptic she is to do again to the the fiberoptic core today again to the sheath this was sent it off with a scratch pad. They were then passed up secured to the catheter with a Tegaderm catheter was placed to gravity drainage and the patient went on to colectomy and colovesical fistula repair by Dr. Ace. This will be dictated under separate cover there were no complications Complications: none Post-operative Condition: stable Disposition: other (Patient went on to further surgery by Dr. Ace) Plan for aftercare: Per Dr. Ace and the patient will be discharged home with a Carlos we will see the patient in approximately 7-10 days with a cystogram
[2022-09-25] MEDS: BUPIVACAINE 0.5% W/ EPI (PF) 30 ML VIAL INJ (09:11)
[2022-09-25] MEDS: MINERAL OIL LIGHT TOPICAL 10 ML TOP (09:13)
--- NOTE | 2022-09-25 09:15 | SUR.OPER ---
Lithotomy on padded OR bed, head on pillow, left arms secured on padded arm boards at <90 degrees abduction.right arm padded and tucked, Legs secured in padded yellow fins stirrups.
[2022-09-25] MEDS: ACETAMINOPHEN IV 1,000 MG/100 ML VIAL 400 MG IV (11:16)
[2022-09-25] MEDS: BUPIVACAINE LIPOSOME 266 MG/20 ML VIAL INJ (12:09)
--- NOTE | 2022-09-25 12:40 | SUR.OPER ---
lighted stents placeds for the procedure and removed at the end of the case.
--- NOTE | 2022-09-25 13:00 | P.OP_ITS ---
Operative Date/Time/Diagnoses Date of procedure: 09/25/22 Time of procedure: 13:00 Pre-op diagnosis: Sigmoid diverticulitis and colovesical fistula Post-op diagnosis: same Procedure & Clinicians Procedure: A laparoscopic-assisted sigmoid colectomy Same procedure as scheduled: Yes Surgeon: Yared Ace Furnace Room Supervisor: Ebonie Rogel Operative Notes Procedure in detail: The patient was given Unasyn. The patient was brought to the operating room, placed on the table in the supine position and general endotracheal anesthesia was induced. Dr. Villalba performed cystoscopy and stent placement. A Carlos catheter was inserted. See the separate operative note from Dr. Villalba for details. The abdomen was prepped and draped in the usual fashion and a time-out was performed. We made a 1 cm infraumbilical incision and a Dash port was placed. The abdomen was insufflated in the usual manner. The camera was inserted no evidence of an injury was seen. Next we placed 5 mm ports in the right lower quadrant, right upper quadrant left mid abdomen and subxiphoid position. We inspected the abdomen and found the thickened distal sigmoid colon. We then started to reflect the sigmoid colon along the white line of T[place]. We then continued the dissection to the splenic flexure and performed a complete takedown of the splenic flexure including the distal transverse colon. We continued the dissection down into the pelvis. Once we had adequate mobilization we created a low midline incision. The distal sigmoid colon was quite thickened and adherent to the pelvis. Finger fracture was used to free this segment of the colon. It was from the bladder and a small hole with expose the bladder mucosa was seen. Two interrupted 2-0 Vicryl sutures were used to close the bladder. The sigmoid colon was resected using 2 firings of the contour stapler. The mesentery was divided using the power seal. The appendix was adhesed to the sigmoid mesentery and was separately resected using the variceal to take down the mesoappendix and 2 0 silk ties to close the base of the appendix and a third 0 silk tie slightly distally. The appendix was divided with Metzenbaum scissors between the 2 proximal and 1 distal time. We then created a colorectal anastomosis using the 29 mm EEA stapler. The donuts were intact and the leak test was negative for leak. Finally, Exparel was injected into the pre and post fascial planes. The fascia was then closed using a running 0 PDS suture supported by multiple interrupted 0 Vicryl internal retention sutures. The patient was awakened and brought to recovery room. Dr. Rogel provided assistance with exposure and creation of the anastomosis. EBL: 30 mL Post-operative Condition: stable Disposition: PACU
--- NOTE | 2022-09-25 13:20 | SUR.PHASEI ---
SBAR to Yuri MCKINLEY. To 222 with all belongings.
[2022-09-25] MEDS: LACTATED RINGERS 1,000 ML 90 ML IV ×2 (13:43→22:00)
[2022-09-25] MEDS: IBUPROFEN 600 MG TABLET PO (13:46)
[2022-09-25] MEDS: HYDROCODONE/ACET 5/325 TABLET 1 TAB PO (16:01)
[2022-09-25] MEDS: NICOTINE 14 PATCH 14 MG TOP (16:29)
[2022-09-25] MEDS: HYDROCODONE/ACET 5/325 TABLET 2 TAB PO (19:48)
[2022-09-25] MEDS: ACETAMINOPHEN 325 MG TABLET 650 MG PO (19:49)
[2022-09-25] MEDS: HYDROMORPHONE 0.5 MG INJ IV (22:00)
[2022-09-26] VITALS: BP 116/69; PULSE 78; RESP 16; TEMP 36.7; O2SAT 96
[2022-09-26] MEDS: AMPICILLIN/SULBACTAM 3 GM 3 GM in SODIUM CHLORIDE 0.9% 100 ML IV ×2 (00:35→07:53)
[2022-09-26] MEDS: HYDROMORPHONE 0.5 MG INJ IV ×2 (02:32→11:47)
[2022-09-26 04:00] VITALS: BP 110/61; PULSE 64; RESP 17; TEMP 36.7; O2SAT 96
[2022-09-26 04:42] LABS: Add Manual Diff / Slide Review NO; Basophils Absolute Auto 0 /uL (0-100); Basophils Percent Auto 0.2 % (0-2); Eosinophils Absolute Auto 0 /uL (0-450); Hematocrit 36.8 % (41-53); Hemoglobin 12.5 g/dL (13.5-17.5); Lymphocytes Absolute Auto 1300 /uL (1100-4500); Lymphocytes Percent Auto 10.2 % (25-40); Mean Corpuscular Hemoglobin 28.2 PG (26-34); Monocytes Absolute Auto 1100 /uL (0-900); Neutrophils Absolute Auto 10200 /uL (1500-7000); Neutrophils Percent Auto 80.6 % (50-75); Platelet Count 233 X10^3/uL (150-400); Red Blood Cell Count 4.44 X10^6/uL (4.5-5.9); Red Cell Distribution Width 13.8 % (11.6-14.8); White Blood Cell Count 12.6 X10^3/uL (4.5-11.0)
[2022-09-26 04:49] LABS: Alanine Aminotransferase 31 IU/L (<50); Albumin 3.5 g/dL (3.5-5.0); Albumin Globulin Ratio 1.1 (1.0-2.8); Alkaline Phosphatase 69 U/L (38-126); Aspartate Aminotransferase 29 IU/L (17-59); BUN Creatinine Ratio 17.2 (6-22); Bilirubin Total 0.4 mg/dL (0.2-1.3); Blood Urea Nitrogen 16 mg/dL (9-20); Calcium 7.9 mg/dL (8.4-10.2); Carbon Dioxide 22 mmol/L (22-32); Chloride 103 mmol/L (98-107); Estimated Glomerular Filt Rate > 60 mL/min (>60); Globulin 3.2 g/dL (1.7-4.1); Glucose 124 mg/dL (80-110); HEMOLYSIS < 15 (0-50); Potassium 4.4 mmol/L (3.4-5.1); Sodium 133 mmol/L (137-145); Total Protein 6.7 g/dL (6.3-8.2)
[2022-09-26] MEDS: HYDROCODONE/ACET 5/325 TABLET 2 TAB PO (07:50)
[2022-09-26] MEDS: TAMSULOSIN 0.4 MG CAPSULE PO (08:41)
[2022-09-26 08:45] VITALS: BP 113/70; PULSE 66; RESP 18; TEMP 36.6; O2SAT 97
--- NOTE | 2022-09-26 08:58 | P.PN_ITS ---
Subjective Subjective Date Patient Seen: 09/26/22 Time Patient Seen: 08:58 Interval history: Sonny complains of incisional pain. He feels things moving around in his abdomen but he is not sure that he is passing gas yet. He is not particularly hungry. He sat up in a chair for part of the evening last night. Exam Vital Signs (past 8 hours): - 09/26/22 04:00 09/26/22 08:45 09/26/22 07:00 Temperature 98.1 F 98 F Pulse Rate 64 66 Respiratory Rate 17 18 Blood Pressure 110/61 113/70 Pulse Oximetry 96 97 Oxygen Delivery Method Room Air Oxygen Flow Rate 0 Oxygen Delivery Method Room Air Oxygen Flow Rate 0 Narrative Exam Narrative: Abdomen moderately distended Urine is clear Objective Labs 09/26/22 04:14 09/26/22 04:14 Labs: Laboratory Results - last 24 hr 09/26/22 09/26/22 04:14 04:14 WBC 12.6 H RBC 4.44 L Hgb 12.5 L Hct 36.8 L MCV 83.0 MCH 28.2 MCHC 34.0 RDW 13.8 Plt Count 233 Neut % (Auto) 80.6 H Lymph % (Auto) 10.2 L [place] % (Auto) 9.0 Eos % (Auto) 0.0 L Baso % (Auto) 0.2 Neut # (Auto) 31631 H Lymph # (Auto) 1300 [place] # (Auto) 1100 H Eos # (Auto) 0 Baso # (Auto) 0 Sodium 133 L Potassium 4.4 Chloride 103 Carbon Dioxide 22 BUN 16 Creatinine 0.93 Estimated GFR > 60 BUN/Creatinine Ratio 17.2 Glucose 124 H Calcium 7.9 L Total Bilirubin 0.4 AST 29 ALT 31 Alkaline Phosphatase 69 Total Protein 6.7 Albumin 3.5 Globulin 3.2 Albumin/Globulin Ratio 1.1 PFSH Medical History (Updated 09/20/22 @ 15:27 by Natalie Ellison RN) Asthma GERD (gastroesophageal reflux disease) Hiatal hernia History of asthma History of COPD History of diverticulitis Medication reaction Psoriasiform dermatitis Psoriasiform dermatitis Psoriasis Shortness of breath Surgical History (Updated 09/20/22 @ 15:27 by Natalie Ellison RN) Hx of hernia repair Hx of knee surgery Hx of tonsillectomy Family History Sister Hypertension Mother ESRD (end stage renal disease) on dialysis Father No pertinent past medical history Social History marital status: household members: family occupational status: employed Smoking Status: Current every day smoker Tobacco: How many years used: 48 alcohol intake: current caffeine: Yes Type(s) of exercise: none Assessment & Plan Assessment and plan (1) [place]-vesical fistula: Status: Acute Plan Doing well postoperative day 1 following laparoscopic-assisted sigmoid colectomy and bladder repair. Start full liquid diet today Start Lovenox today Time Spent With Patient Critical Care time: I spent a total of [] minutes of critical care time on this patient's care today; this time is exclusive of procedural time. Quality VTE Deep Vein Thrombosis/Pulmonary Embolism Present on Admission: No
[2022-09-26] MEDS: ENOXAPARIN 40 MG/0.4 ML SYRINGE SUBCUT (09:00)
[2022-09-26] MEDS: IBUPROFEN 600 MG TABLET PO (11:47)
[2022-09-26 13:29] VITALS: BP 120/73; PULSE 63; RESP 17; TEMP 36.6; O2SAT 97
--- NOTE | 2022-09-26 15:54 | CM.DANOTE ---
Initial DCP Assessment Note Pt is a 67 yo male, resident of [place], POD 1 from laparoscopic-assisted sigmoid colectomy and bladder repair Patient was ordered a full liquid diet today PCP: Dilan Cook Payer: [facility] Reviewed chart, pt discussed in multidisciplinary rounds this morning. Patient is expected to stay for an addtl 24-48 hrs, diet being advanced as tolerated Patient may benefit from HH services upon discharge, will plan to review this w/patient No barriers identified at this time to patient's safe discharge home w/family to assist; CM team will plan to follow closely as medical plan of care unfolds LYNDA Matthews Discharge Planning/Care Management Advanced directive, confirm from FAMILY Start: 09/25/22 13:46 Freq: Q24H Status: Inactive Protocol: Document 09/25/22 13:52 BT (Rec: 09/25/22 13:56 BT [id number]) Co-signed By Samara Guevara RN Advance Directive, confirm on record Time 13:55 Person contacted Pt Copy received No CM Discharge Assessment Start: 09/26/22 15:45 Freq: Status: Active Protocol: Document 09/26/22 15:45 JW (Rec: 09/26/22 15:54 JW [id number]) Discharge Planning Assessment Assigned Spanish Interpreter LYNDA Cohen DPOA/Assigned Designee Name sister Martinez Contact Information [phone] Advance Directives? No Advance Directives on File No History Provided By Patient,Medical Record Prior Living Arrangements House Household Members family Type of transporation used prior to Drives own vehicle admit Independent with ADL's Yes Is patient alert and oriented? Yes Barriers to Discharge No Comment Anticipate that patient will discharge home when medically cleared, may benefit from HH, will discuss w/patient Discharge Plan Home with Home Health Transportation Arrangement Likely sister can transport at d/c Referrals Initiated None needed,Home Health Additional Comment r/o need for HH
[2022-09-26] MEDS: NICOTINE 14 PATCH 14 MG TOP (16:23)
[2022-09-26] MEDS: HYDROCODONE/ACET 5/325 TABLET 1 TAB PO ×2 (16:24→20:24)
[2022-09-26 17:03] VITALS: BP 130/80; PULSE 66; RESP 18; TEMP 36.7; O2SAT 98
[2022-09-26 20:00] VITALS: BP 157/72; PULSE 76; RESP 18; TEMP 37.2; O2SAT 95
[2022-09-26] MEDS: SODIUM CHLORIDE 0.9% FLUSH 10 ML IV (21:00)
[2022-09-27] VITALS: BP 133/64; PULSE 69; RESP 15; TEMP 37.1; O2SAT 94
[2022-09-27] MEDS: HYDROCODONE/ACET 5/325 TABLET 1 TAB PO ×4 (01:07→14:01)
[2022-09-27 04:00] VITALS: BP 141/70; PULSE 65; RESP 18; TEMP 37.1; O2SAT 94
[2022-09-27 08:00] VITALS: BP 160/80; PULSE 67; RESP 15; TEMP 36.8; O2SAT 95
--- NOTE | 2022-09-27 08:50 | PM.PNPO.1 ---
Subjective Subjective Date Patient Seen: 09/27/22 Time Patient Seen: 08:50 Interval history: S/p lap assisted partial sigmoid colectomy with repair of colovesical fistula Exam Vital Signs (past 8 hours): - 09/27/22 04:00 Temperature 98.7 F Pulse Rate 65 Respiratory Rate 18 Blood Pressure 141/70 H Pulse Oximetry 94 Oxygen Delivery Method Room Air Oxygen Flow Rate 0 Narrative Exam Narrative: Slight distended, having BMs, wounds intact no infection Objective Labs 09/26/22 04:14 09/26/22 04:14 PFS Medical History (Updated 09/20/22 @ 15:27 by Natalie Ellison, ELÍAS) Asthma GERD (gastroesophageal reflux disease) Hiatal hernia History of asthma History of COPD History of diverticulitis Medication reaction Psoriasiform dermatitis Psoriasiform dermatitis Psoriasis Shortness of breath Surgical History (Updated 09/20/22 @ 15:27 by Natalie Ellison, ELÍAS) Hx of hernia repair Hx of knee surgery Hx of tonsillectomy Family History Sister Hypertension Mother ESRD (end stage renal disease) on dialysis Father No pertinent past medical history Social History marital status: household members: family occupational status: employed Smoking Status: Current every day smoker Tobacco: How many years used: 48 alcohol intake: current caffeine: Yes Type(s) of exercise: none Assessment & Plan Post-op Postoperative Procedures: Procedures Operation Date: 09/25/22 07:45 Actual Procedure Side Surgeon s Cystoscopy w/ Ureteral Procedure Placement of Ureteral Stent Bilateral Jose J Villalba MD p Laparoscopically Assisted Sigmoid colon resection w/ cystoscopy Yared Ace MD Postoperative day: 2 Postoperative status: doing well Postoperative plan narrative: advance diet Possible discharge tomorrow with quiroz for 10 days total. Quality VTE Deep Vein Thrombosis/Pulmonary Embolism Present on Admission: No
[2022-09-27] MEDS: ENOXAPARIN 40 MG/0.4 ML SYRINGE SUBCUT (10:04)
[2022-09-27] MEDS: SODIUM CHLORIDE 0.9% FLUSH 10 ML IV ×2 (10:06→20:49)
[2022-09-27] MEDS: TAMSULOSIN 0.4 MG CAPSULE PO (10:06)
[2022-09-27 12:00] VITALS: BP 180/80; PULSE 75; RESP 16; TEMP 36.8; O2SAT 96
[2022-09-27 14:06] VITALS: BP 147/76
[2022-09-27] MEDS: NICOTINE 14 PATCH 14 MG TOP (16:56)
[2022-09-27 20:00] VITALS: BP 183/91; PULSE 74; RESP 17; TEMP 37.5; O2SAT 93
[2022-09-27] MEDS: HYDROCODONE/ACET 5/325 TABLET 2 TAB PO (20:49)
[2022-09-28] MEDS: HYDROCODONE/ACET 5/325 TABLET 1 TAB PO ×3 (03:04→18:47)
[2022-09-28 04:00] VITALS: BP 155/84; PULSE 61; RESP 16; TEMP 37.1; O2SAT 96
--- NOTE | 2022-09-28 06:30 | PC.NURSE ---
I agree with Miriam RNs assessment, documentation, and interventions.
[2022-09-28] MEDS: IBUPROFEN 600 MG TABLET PO ×2 (09:13→18:48)
[2022-09-28] MEDS: ENOXAPARIN 40 MG/0.4 ML SYRINGE SUBCUT (09:14)
[2022-09-28] MEDS: TAMSULOSIN 0.4 MG CAPSULE PO (09:14)
[2022-09-28] MEDS: SODIUM CHLORIDE 0.9% FLUSH 10 ML IV ×2 (09:16→22:55)
[2022-09-28 11:17] VITALS: BP 130/79; PULSE 72; RESP 16; TEMP 36.6; O2SAT 97
[2022-09-28] MEDS: NICOTINE 14 PATCH 14 MG TOP (18:47)
--- NOTE | 2022-09-28 19:20 | PM.PN.1 ---
Exam Vital Signs (past 8 hours): Oxygen Delivery Method Room Air Oxygen Flow Rate 0 Narrative Exam Narrative: Doing well no ongoing issues he still is a little bit painful and does not feel ready to go home just yet today. Const General: cooperative and comfortable Orientation: alert, awake and oriented x3 HENMT Head: normal to inspection Resp Effort & Inspection: normal respiratory effort and able to speak in complete sentences GI Other: Wound dressing is in place there some saturation of the dressing within normal limits Band-Aids are still in place. The abdomen is mildly distended and appropriately tender. Objective Labs 09/26/22 04:14 09/26/22 04:14 [facility] Medical History (Updated 09/20/22 @ 15:27 by Natalie Ellison RN) Asthma GERD (gastroesophageal reflux disease) Hiatal hernia History of asthma History of COPD History of diverticulitis Medication reaction Psoriasiform dermatitis Psoriasiform dermatitis Psoriasis Shortness of breath Surgical History (Updated 09/20/22 @ 15:27 by Natalie Ellison RN) Hx of hernia repair Hx of knee surgery Hx of tonsillectomy Family History Sister Hypertension Mother ESRD (end stage renal disease) on dialysis Father No pertinent past medical history Social History marital status: household members: family occupational status: employed Smoking Status: Current every day smoker Tobacco: How many years used: 48 alcohol intake: current caffeine: Yes Type(s) of exercise: none Assessment & Plan Assessment & Plan narrative: Postop day 3 status post sigmoidectomy for colovesicular fistula. There is a plan for discharge with the Carlos in place. He is not quite ready today probably will be ready tomorrow. Time Spent With Patient Critical Care time: I spent a total of [] minutes of critical care time on this patient's care today; this time is exclusive of procedural time. Quality VTE Deep Vein Thrombosis/Pulmonary Embolism Present on Admission: No
[2022-09-28 20:00] VITALS: BP 167/77; PULSE 59; RESP 15; TEMP 37; O2SAT 93
[2022-09-29] MEDS: HYDROCODONE/ACET 5/325 TABLET 1 TAB PO (05:57)
[2022-09-29] MEDS: IBUPROFEN 600 MG TABLET PO (05:58)
--- NOTE | 2022-09-29 09:51 | PM.DS.1 ---
History of Present Illness History of Present Illness Date Patient Seen: 09/29/22 Chief complaint: Laparoscopically Assisted Colectomy/Cysto w/ Cath Narrative: 67-year-old man with a colovesicular fistula secondary to diverticular disease admitted following a elective laparoscopic assisted sigmoid colectomy. Discharge Providers Provider Date of admission: 09/25/22 06:12 Discharge Date: 09/29/22 Primary care physician: Dilan Cook MD Discharge provider: Mick Heath MD Summary Hospital Course Discharge Diagnosis: Colovesicular fistula Hospital Course: Patient underwent a laparoscopic assisted sigmoid colectomy September 25, 2022. Postoperative course was unremarkable. At discharge he is ambulatory, tolerating a regular diet, has return of bowel function and pain is well controlled with oral medication. Exam Vital Signs (past 8 hours): Oxygen Delivery Method Room Air Oxygen Flow Rate 0 Narrative Exam Narrative: GENERAL: A well nourished, well developed gentleman appearing stated age, resting comfortably, in no acute distress. HEENT: Normocephalic, atraumatic. No scleral icterus NECK: Full range of motion. No evidence of cervical lymphadenopathy or JVD. CHEST: Rising symmetrically. No audible wheezes CARDIOVASCULAR: Warm and well perfused. Regular rate ABDOMEN: Soft, appropriately tender to palpation. Dressing to midline clean dry intact. Laparoscopic port incisions are covered with Band-Aids without drainage. EXTREMITIES: Normal tone and without edema. NEUROLOGIC: Moving all extremities spontaneously. No gross motor deficits. Objective Labs 09/26/22 04:14 09/26/22 04:14 [facility] Medical History (Updated 09/20/22 @ 15:27 by Natalie Ellison RN) Asthma GERD (gastroesophageal reflux disease) Hiatal hernia History of asthma History of COPD History of diverticulitis Medication reaction Psoriasiform dermatitis Psoriasiform dermatitis Psoriasis Shortness of breath Surgical History (Updated 09/20/22 @ 15:27 by Natalie Ellison RN) Hx of hernia repair Hx of knee surgery Hx of tonsillectomy Family History Sister Hypertension Mother ESRD (end stage renal disease) on dialysis Father No pertinent past medical history Social History marital status: household members: family occupational status: employed Smoking Status: Current every day smoker Tobacco: How many years used: 48 alcohol intake: current caffeine: Yes Type(s) of exercise: none Discharge Plan Discharge Plan Patient Disposition: Home Provider Discharge Comment: No lifting greater than 20 lb for 2 weeks. Use the leg bag when you go out during the day and the night bag at night. Follow up with Dr. Villalba's office regarding quiroz removal. Discharge orders & Medications Prescriptions: New hydrocodone-acetaminophen 5-325 mg tablet 1 tab PO Q8H PRN (Reason: pain) Qty: 10 0RF Continued tamsulosin 0.4 mg Capsule 0.4 mg PO DAILY nicotine 14 mg/24 hr Patch 24 Hour 1 patch TRANSDERMAL Q24H Follow up/Referrals: Dilan Cook MD [Primary Care Provider] - (In 2 weeks) Jose J Villalba MD [Physician] - (Follow up in 7 to 10 days. Possible Cystogram at that time. ) Diet/Activity/Treatments Diet: Regular Skin/Wound/Dressing Care Report to your healthcare provider any signs of infection, such as:: chills, fever, increased pain, unusual drainage and unusual redness Visit Report/Discharge Packet Instructions: How to Care for Your Quiroz Catheter -- Male, How to Use an Incentive Spirometer, Soft Diet, DI for Cystoscopy, DI for Colectomy, DI for Laparoscopy, DI for Urinary Tract Infection (UTI), How to Prevent Falls, DI for Taking Pain Medication, DI for Ureteral Stent Placement, [facility]: Wound Care Stand Alone Forms: Patient Portal/API, Stroke Signs & Symptoms Discharge Data Primary Care Provider: Dilan Cook Quality VTE Deep Vein Thrombosis/Pulmonary Embolism Present on Admission: No
[2022-09-29] MEDS: TAMSULOSIN 0.4 MG CAPSULE PO (10:13)
[2022-09-29] MEDS: SODIUM CHLORIDE 0.9% FLUSH 10 ML IV (10:13)
[2022-09-29] MEDS: ENOXAPARIN 40 MG/0.4 ML SYRINGE SUBCUT (10:13)
--- NOTE | 2022-09-29 11:06 | CM.DPNOTE ---
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 Close outpatient follow up recommended JW
[2022-09-29 12:00] VITALS: BP 173/79; PULSE 62; RESP 20; TEMP 37.7; O2SAT 96
--- NOTE | 2022-09-29 12:50 | PC.NURSE ---
Pt discharged home by private vehicle at 1215, escorted off floor in wheelchair, accompanied by hospital staff. IV removed, discharge teaching completed including follow up appointments, worsening symptoms and education regarding care of quiroz catheter and bag. Questions answered and concerns addressed. Dr. Heath and Dr. Villalba called about expiring prescription for tamsulosin, Dr. Heath to send new prescription. Patient left floor with all belongings.
== END 2022-09-29 13:00 | disposition home or self-care (01) | DRG 660 ==
PROVIDERS: Urology; Admitting Provider Surgery; PCP Internal Medicine; Referring Provider Surgery; Visit Provider Surgery
PROC: 0T788DZ Dilation of Bilateral Ureters with Intraluminal Device, Via Natural or Artificial Opening Endoscopic (ICD-10-PCS; principal; 2022-09-25 07:45)
PROC: 0DTE0ZZ Resection of Large Intestine, Open Approach (ICD-10-PCS; 2022-09-25 07:45)
DX: N32.1 Vesicointestinal fistula (principal); K57.32 Diverticulitis of large intestine without perforation or abscess without bleeding; F17.210 Nicotine dependence, cigarettes, uncomplicated; Z20.822 Contact with and (suspected) exposure to COVID-19
CPT/HCPCS: 36415; 44204; 52332; 80053; 85025; 87635; C9803; C9290; J0131; J0295; J0330; J1100; J1170; J1650; J2405; J2704; J3010

== ENCOUNTER → 2022-10-03 09:39 | Outpatient (CLI) | payer OTHER, MEDICAID, SELFPAY ==
[2022-09-25 06:15] VITALS: BMI 25.1
--- NOTE | 2022-10-03 09:40 | DI.RAD.S_ITS ---
PROCEDURE: FL CYSTOGRAM INDICATIONS: History of colovesical fistula COMPARISON: None. FINDINGS: KUB: Preprocedural marking machine tender film demonstrates a normal bowel gas pattern. A Carlos catheter is present. No suspicious abdominal calcifications. Bony structures are unremarkable. Bladder: The filled bladder appears normal in contour. Early images demonstrate no bladder wall trabeculations. No vesicoureteral reflux or contrast extravasation. Postvoid: No significant postvoid residual. IMPRESSION: No evidence colovesical fistula. Dictated by: Paul Payan M.D. on 10/03/2022 at 11:39 Approved by: Paul Payan M.D. on 10/03/2022 at 11:40
== END ==
PROVIDERS: PCP Internal Medicine; Referring Provider Urology; Visit Provider Urology
DX: N32.1 Vesicointestinal fistula (principal)
CPT/HCPCS: 74430

== ENCOUNTER → 2022-10-04 14:06 | Outpatient (CLI) | payer OTHER, MEDICAID, SELFPAY ==
[2022-09-25 06:15] VITALS: BMI 25.1
== END ==
PROVIDERS: PCP Internal Medicine; Visit Provider Urology
DX: N39.0 Urinary tract infection, site not specified (principal); N32.1 Vesicointestinal fistula; Z97.8 Presence of other specified devices
CPT/HCPCS: 87077; 87086; 87147; 99213

== ENCOUNTER → 2022-10-24 08:10 | Outpatient (CLI) | payer OTHER, MEDICAID, SELFPAY ==
[2022-09-25 06:15] VITALS: BMI 25.1
[2022-10-24 08:44] LABS: Appearance Urine UA CLEAR; Bilirubin Urine UA NEGATIVE (NEGATIVE); Color Urine UA YELLOW; Glucose Urine UA NEGATIVE (Negative); Ketones Urine UA NEGATIVE (NEGATIVE); Leukocyte Esterase Urine UA NEGATIVE (NEGATIVE); Nitrite Urine UA NEGATIVE (Negative); Occult Blood Urine UA NEGATIVE (Negative); Protein Urine UA NEGATIVE (Negative); Specific Gravity Urine UA 1.025 (1.000-1.035); Urobilinogen Urine UA 0.2 E.U./dL (0.2); pH Urine UA 5.5 (4.5-8.0)
[2022-10-24 08:47] LABS: Bacteria Urine None Seen; Culture Indicated Urine Cult Not Indicated; RBC Urine None Seen (0-5/HPF); Urine Comments Microscopic Normal; WBC Urine None Seen (0-5/HPF)
== END ==
PROVIDERS: Referring Provider Urology; Visit Provider Urology
DX: N39.0 Urinary tract infection, site not specified (principal)
CPT/HCPCS: 81001

== ENCOUNTER → 2022-11-16 08:02 | Outpatient (CLI) | payer MEDICARE, MEDICAID, SELFPAY ==
[2022-09-25 06:15] VITALS: BMI 25.1
--- NOTE | 2022-11-16 | DI.US.S_ITS ---
PROCEDURE: US ABD AORTA ANEURYSM SCREEN INDICATIONS: AAA SCREENING TECHNIQUE: Real-time scanning was performed of the aorta and proximal common iliac arteries, with image documentation. COMPARISON: [facility], CT, CT ABDOMEN PELVIS W CON, 07/24/2022, 13:11. FINDINGS: Aorta: Abdominal aorta is normal in caliber throughout its length. Abdominal aorta measures 2.3 cm. Mid aorta measures 2.1 cm. Distal aorta 1.5 cm. Iliacs: Proximal common iliac arteries are normal in caliber. Right ANTONIO measures 0.8 cm. Left ANTONIO measures 0.7 cm. IMPRESSION: No abdominal aortic aneurysm. Dictated by: Russ Tom M.D. on 11/16/2022 at 9:31 Approved by: Russ Tom M.D. on 11/16/2022 at 9:32
== END ==
PROVIDERS: PCP Physician Assistant; Referring Provider Physician Assistant; Visit Provider Physician Assistant
DX: Z13.6 Encounter for screening for cardiovascular disorders (principal)
CPT/HCPCS: 76706

== ENCOUNTER 2023-05-09 19:51 | Emergency (ER) | payer MEDICARE, MEDICAID, SELFPAY ==
[2022-09-25 06:15] VITALS: BMI 25.1
[2023-05-09] VITALS (13 sets, daily range): BP systolic 182–249; BP diastolic 80–144; PULSE 61–96; RESP 13–36; TEMP 36.4; O2SAT 95–99
--- NOTE | 2023-05-09 19:58 | DI.RAD.S_ITS ---
PROCEDURE: XR CHEST 1V INDICATIONS: sudden SOB TECHNIQUE: One view of the chest was acquired. COMPARISON: None. FINDINGS: Surgical changes and devices: None. Lungs and pleura: Lungs are clear. No pleural effusions or pneumothorax. Mediastinum: Mediastinal contours appear normal. Heart size is normal. Bones and chest wall: No suspicious bony lesions. Overlying soft tissues appear unremarkable. IMPRESSION: 1. No acute cardiopulmonary disease. Dictated by: Luis Alfredo Shaver M.D. on 05/09/2023 at 21:06 Approved by: Luis Alfredo Shaver M.D. on 05/09/2023 at 21:07
--- NOTE | 2023-05-09 19:59 | ED_ITS ---
HPI - General Adult General Chief complaint: Shortness of Breath/Dyspnea Stated complaint: difficulty breathing Time Seen by Provider: 05/09/23 19:52 History of Present Illness HPI narrative: 67-year-old male with 40 pack-year history of smoking presents with family in the chief complaint of what he describes as a relatively sudden onset significant shortness of breath. He states that he had been in his normal state of health over the course of the day and denies any fatigue, cough, fever, chest pain or any difficulties whatsoever until about 1 hour ago he developed sudden onset shortness of breath and wheezing. Denies any exposure to ill persons or possible triggers. He denies recent travel, lower extremity pain, swelling or redness, no history of blood clot or known cancer. He denies any chest pain, fever, no cough. Related Data Home Medications Medication Instructions Recorded Confirmed tamsulosin 0.4 mg capsule 0.4 mg PO DAILY 09/20/22 01/25/23 nicotine 14 mg/24 hr daily 1 patch transdermal Q24H 09/25/22 01/25/23 transdermal patch ibuprofen 200 mg tablet 400 mg PO BID PRN 10/08/22 01/25/23 varenicline 0.5 mg (11)-1 mg (42) See Rx Instructions PO PER PKG DIR 01/25/23 01/25/23 tablets in a dose pack ([facility] Starting Month Box) Previous Rx's Medication Instructions Recorded tamsulosin 0.4 mg capsule 0.4 mg PO DAILY #30 caps 11/02/22 prednisone 10 mg tablet See Rx Instructions .Route 05/09/23 .COMPLEX #30 tabs Allergies Allergy/AdvReac Type Severity Reaction Status Date / Time morphine Allergy Intermediate Verified 05/09/23 20:07 Review of Systems Review of Systems Narrative: GENERAL: See HPI HEENT: Denies sinus pain, ear pain, sore throat, difficulty swallowing, dizziness. RESPIRATORY: See HPI CARDIOVASCULAR: See HPI GASTROINTESTINAL: Denies nausea, vomiting, abdominal pain, diarrhea, consti pation, melena. : Denies dysuria, frequency, incontinence, hematuria, urinary retention. MUSCULOSKELETAL: denies weakness, joint pain, or bony pain SKIN: Denies rash, skin lesions, or other NEUROLOGIC: Denies weakness, headache, numbness, change in speech, confusion, seizures, incoordination. PSYCHIATRIC: No concerning psychosocial issues. 12 point review of systems is negative except for those stated above Patient History Medical History Asthma Benign prostatic hyperplasia Bladder outlet obstruction GERD (gastroesophageal reflux disease) Hiatal hernia History of asthma History of COPD History of diverticulitis Lower urinary tract symptoms Medication reaction Psoriasiform dermatitis Psoriasiform dermatitis Psoriasis Shortness of breath Surgical History Hx of hernia repair Hx of knee surgery Hx of tonsillectomy Family History Sister Hypertension Mother ESRD (end stage renal disease) on dialysis Father No pertinent past medical history Social History marital status: household members: family occupational status: employed Smoking Status: Current every day smoker Tobacco: How many years used: 48 alcohol intake: current caffeine: Yes Type(s) of exercise: none Smoking Status: Current every day smoker alcohol intake frequency: holidays/special occasions only Substance Use Type: does not use Exam Narrative Exam Narrative: GENERAL: [67] year old patient appears stated age. Well-developed patient, in obvious distress, conversational dyspnea, increased work of breathing, tripoding HEAD: Atraumatic. Normocephalic. EYES: Pupils equal round and reactive. Extraocular motions intact. No scleral icterus. No injection or drainage. ENT: Nose without bleeding, purulent drainage. Throat without erythema, tonsillar hypertrophy or exudate. Airway patent. NECK: Trachea midline. Non tender CARDIOVASCULAR: Regular rate and rhythm without murmurs, gallops, or rubs. RESPIRATORY: Decreased breath sounds throughout with prolonged expiratory phase, wheezing in all castillo, tachypnea, use of accessory muscles, no hypoxemia GASTROINTESTINAL: Abdomen soft, non-tender, nondistended. EXTREMITIES: No edema or joint tenderness. BACK: Nontender without deformity or crepitance. No flank tenderness. NEURO: AOx3. SKIN: No rash or erythema of visible areas Initial Vital Signs Initial Vital Signs: Vital Signs Pulse Rate 88 05/09/23 19:57 Respiratory Rate 27 H 05/09/23 19:57 Pulse Oximetry 95 05/09/23 19:57 Course Orders Ordered: ED Orders 05/09/23 19:58 Chest [XR chest 1V] Stat EKG-12 Lead Stat 05/09/23 20:05 Complete Blood Count AUTO DIFF Stat Comprehensive Metabolic Panel Stat D Dimer Stat Lactate (Lactic Acid) Stat Lipase Stat Magnesium Stat NT-proBNP (BNP-Adult 18+) Stat Procalcitonin Stat Prothrombin Time INR Stat Troponin & CK Cardiac Panel Stat 05/09/23 20:10 Covid-19 + FLU A/B + RSV - PCR Stat 05/09/23 20:40 CT angio chest PE protocol Stat Discontinued Medications Albuterol (Albuterol 2.5 Mg/3 Ml Neb (Adult)) 20 mg INH NOW ONE Stop: 05/09/23 20:09 Last Admin: 05/09/23 20:17 Dose: 20 mg Documented By: YOLIS Albuterol (Albuterol Hfa Prepack) 1 box MISC SEEINSTR ONE Stop: 05/09/23 22:38 Last Admin: 05/09/23 22:45 Dose: 1 box Documented By: MARLENE Albuterol/Ipratropium (Albuterol/Ipratropium 3 Ml Ampul) 3 ml INH NOW ONE Stop: 05/09/23 19:59 Last Admin: 05/09/23 20:09 Dose: 3 ml Documented By: ROSALES Methylprednisolone (Methylprednisolone 125 Mg/2 Ml Vial) 125 mg IV NOW ONE Stop: 05/09/23 19:59 Last Admin: 05/09/23 20:07 Dose: 125 mg Documented By: AMV Vital Signs Vital signs: Vital Signs - 8 hr 05/09/23 19:58 05/09/23 20:09 05/09/23 19:57 Temperature 97.5 F L Pulse Rate 86 86 88 Respiratory Rate 30 H 26 H 27 H Blood Pressure 243/109 H Pulse Oximetry 95 95 95 Oxygen Delivery Method Room Air Room Air Oxygen Flow Rate 0 Fraction of Inspired Oxygen 21 05/09/23 19:58 05/09/23 19:58 05/09/23 20:00 Temperature Pulse Rate 96 H Respiratory Rate 36 H Blood Pressure 243/109 H 249/144 H Pulse Oximetry 95 Oxygen Delivery Method Room Air Oxygen Flow Rate Fraction of Inspired Oxygen 05/09/23 20:00 05/09/23 20:09 05/09/23 20:09 Temperature Pulse Rate 86 77 Respiratory Rate 25 H 20 Blood Pressure 222/101 H Pulse Oximetry 95 99 Oxygen Delivery Method Oxygen Flow Rate Fraction of Inspired Oxygen 05/09/23 20:26 05/09/23 20:30 05/09/23 20:31 Temperature Pulse Rate 75 69 Respiratory Rate 26 H 21 Blood Pressure 237/101 H Pulse Oximetry 98 98 Oxygen Delivery Method Room Air Oxygen Flow Rate Fraction of Inspired Oxygen 05/09/23 20:31 05/09/23 20:54 05/09/23 20:54 Temperature Pulse Rate 68 65 Respiratory Rate 20 17 Blood Pressure 228/94 H Pulse Oximetry 98 98 Oxygen Delivery Method Oxygen Flow Rate Fraction of Inspired Oxygen 05/09/23 21:00 05/09/23 21:00 05/09/23 21:30 Temperature Pulse Rate 65 62 Respiratory Rate 28 H 13 Blood Pressure 216/94 H Pulse Oximetry 98 99 Oxygen Delivery Method Oxygen Flow Rate Fraction of Inspired Oxygen 05/09/23 22:00 05/09/23 22:30 05/09/23 22:48 Temperature Pulse Rate 69 61 63 Respiratory Rate 14 16 14 Blood Pressure Pulse Oximetry 97 98 97 Oxygen Delivery Method Oxygen Flow Rate Fraction of Inspired Oxygen 05/09/23 22:48 Temperature Pulse Rate Respiratory Rate Blood Pressure 182/80 H Pulse Oximetry Oxygen Delivery Method Oxygen Flow Rate Fraction of Inspired Oxygen Medical Decision Making Lab Data 05/09/23 20:05 05/09/23 20:05 Labs: Lab Results 05/09/23 05/09/23 05/09/23 Range/Units 20:05 20:05 20:05 WBC 10.4 (4.5-11.0) X10^3/uL RBC 4.68 (4.5-5.9) X10^6/uL Hgb 14.1 (13.5-17.5) g/dL Hct 40.3 L (41-53) % MCV 86.1 (80-100) fL MCH 30.0 (26-34) PG MCHC 34.9 (30-36) % RDW 13.7 (11.6-14.8) % Plt Count 243 (150-400) X10^3/uL Neut % (Auto) 51.5 (50-75) % Lymph % (Auto) 35.6 (25-40) % [place] % (Auto) 8.8 (3-14) % Eos % (Auto) 3.1 (2-4) % Baso % (Auto) 1.0 (0-2) % Neut # (Auto) 5400 (7235-7949) /uL Lymph # (Auto) 3700 (5085-1253) /uL [place] # (Auto) 900 (0-900) /uL Eos # (Auto) 300 (0-450) /uL Baso # (Auto) 100 (0-100) /uL PT (10.1-12.7) SECONDS INR (0.9-1.3) D-Dimer 1051 H (<500) ng/ml Sodium 139 (137-145) mmol/L Potassium 3.9 (3.4-5.1) mmol/L Chloride 102 (98-107) mmol/L Carbon Dioxide 23 (22-32) mmol/L BUN 15 (9-20) mg/dL Creatinine 1.01 (0.66-1.25) mg/dL Estimated GFR > 60 (>60) mL/min BUN/Creatinine Ratio 14.9 (6-22) Glucose 161 H (80-110) mg/dL Lactate (0.7-2.1) mmol/L Calcium 9.3 (8.4-10.2) mg/dL Magnesium (1.6-2.3) mg/dL Total Bilirubin 0.5 (0.2-1.3) mg/dL AST 44 (17-59) IU/L ALT 42 (<50) IU/L Alkaline Phosphatase 68 (38-126) U/L Total Creatine Kinase (55-170) U/L Troponin I (0.01-0.034) ng/mL NT-Pro-B Natriuret Pep (<125) pg/mL Total Protein 8.8 H (6.3-8.2) g/dL Albumin 4.8 (3.5-5.0) g/dL Globulin 4.0 (1.7-4.1) g/dL Albumin/Globulin Ratio 1.2 (1.0-2.8) Lipase (23-300) U/L Procalcitonin 0.07 (<0.5) ng/mL SARS-CoV-2 (PCR) (Negative) Influenza A (RT-PCR) (NEGATIVE) Influenza B (RT-PCR) (NEGATIVE) RSV (PCR) (Negative) 05/09/23 05/09/23 05/09/23 Range/Units 20:05 20:05 20:05 WBC (4.5-11.0) X10^3/uL RBC (4.5-5.9) X10^6/uL Hgb (13.5-17.5) g/dL Hct (41-53) % MCV (80-100) fL MCH (26-34) PG MCHC (30-36) % RDW (11.6-14.8) % Plt Count (150-400) X10^3/uL Neut % (Auto) (50-75) % Lymph % (Auto) (25-40) % [place] % (Auto) (3-14) % Eos % (Auto) (2-4) % Baso % (Auto) (0-2) % Neut # (Auto) (7515-5725) /uL Lymph # (Auto) (3344-4629) /uL [place] # (Auto) (0-900) /uL Eos # (Auto) (0-450) /uL Baso # (Auto) (0-100) /uL PT 11.3 (10.1-12.7) SECONDS INR 1.0 (0.9-1.3) D-Dimer (<500) ng/ml Sodium (137-145) mmol/L Potassium (3.4-5.1) mmol/L Chloride (98-107) mmol/L Carbon Dioxide (22-32) mmol/L BUN (9-20) mg/dL Creatinine (0.66-1.25) mg/dL Estimated GFR (>60) mL/min BUN/Creatinine Ratio (6-22) Glucose (80-110) mg/dL Lactate 2.3 H (0.7-2.1) mmol/L Calcium (8.4-10.2) mg/dL Magnesium 1.8 (1.6-2.3) mg/dL Total Bilirubin (0.2-1.3) mg/dL AST (17-59) IU/L ALT (<50) IU/L Alkaline Phosphatase (38-126) U/L Total Creatine Kinase 629 H (55-170) U/L Troponin I < 0.012 (0.01-0.034) ng/mL NT-Pro-B Natriuret Pep 147 H (<125) pg/mL Total Protein (6.3-8.2) g/dL Albumin (3.5-5.0) g/dL Globulin (1.7-4.1) g/dL Albumin/Globulin Ratio (1.0-2.8) Lipase 74 (23-300) U/L Procalcitonin (<0.5) ng/mL SARS-CoV-2 (PCR) (Negative) Influenza A (RT-PCR) (NEGATIVE) Influenza B (RT-PCR) (NEGATIVE) RSV (PCR) (Negative) 05/09/23 05/09/23 Range/Units 20:10 22:35 WBC (4.5-11.0) X10^3/uL RBC (4.5-5.9) X10^6/uL Hgb (13.5-17.5) g/dL Hct (41-53) % MCV (80-100) fL MCH (26-34) PG MCHC (30-36) % RDW (11.6-14.8) % Plt Count (150-400) X10^3/uL Neut % (Auto) (50-75) % Lymph % (Auto) (25-40) % [place] % (Auto) (3-14) % Eos % (Auto) (2-4) % Baso % (Auto) (0-2) % Neut # (Auto) (2013-9777) /uL Lymph # (Auto) (0948-4655) /uL [place] # (Auto) (0-900) /uL Eos # (Auto) (0-450) /uL Baso # (Auto) (0-100) /uL PT (10.1-12.7) SECONDS INR (0.9-1.3) D-Dimer (<500) ng/ml Sodium (137-145) mmol/L Potassium (3.4-5.1) mmol/L Chloride (98-107) mmol/L Carbon Dioxide (22-32) mmol/L BUN (9-20) mg/dL Creatinine (0.66-1.25) mg/dL Estimated GFR (>60) mL/min BUN/Creatinine Ratio (6-22) Glucose (80-110) mg/dL Lactate 2.2 H (0.7-2.1) mmol/L Calcium (8.4-10.2) mg/dL Magnesium (1.6-2.3) mg/dL Total Bilirubin (0.2-1.3) mg/dL AST (17-59) IU/L ALT (<50) IU/L Alkaline Phosphatase (38-126) U/L Total Creatine Kinase (55-170) U/L Troponin I (0.01-0.034) ng/mL NT-Pro-B Natriuret Pep (<125) pg/mL Total Protein (6.3-8.2) g/dL Albumin (3.5-5.0) g/dL Globulin (1.7-4.1) g/dL Albumin/Globulin Ratio (1.0-2.8) Lipase (23-300) U/L Procalcitonin (<0.5) ng/mL SARS-CoV-2 (PCR) Negative (Negative) Influenza A (RT-PCR) Flu a negative (NEGATIVE) Influenza B (RT-PCR) Flu b negative (NEGATIVE) RSV (PCR) Negative (Negative) MDM Narrative Medical decision making narrative: [67] year old patient presents with shortness of breath Multiple etiologies for patient's symptoms considered including, but not limited to: [COPD exacerbation versus pneumonia versus viral upper respiratory infection versus cardiac ischemia versus pulmonary embolism versus hypertension versus CHF versus other] Prior Charts reviewed in our EMR Primary Historian: patient Labs reviewed and interpreted by myself: No leukocytosis or left shift, no signs of anemia, D-dimer 1051, electrolytes, renal function, and troponin within normal limits, respiratory swab negative for COVID, flu and RSV Imaging reviewed: Chest x-ray demonstrates no acute process, CT angiogram demonstrates no PE, no airspace consolidation Patient's symptoms improved over duration of stay with above-stated therapies. Multiple diagnoses considered as noted above. Patient has tremendous improvement after bronchodilators and steroids. Pulmonary embolism considered given elevated D-dimer and relatively sudden onset of symptoms but no findings on imaging. Cardiac ischemia thought possible but unlikely particularly given lack of exercise intolerance, exertional symptoms, negative troponin, no diaph oresis, nausea, dizziness, nonischemic EKG and negative troponin. Symptoms not related to elevated blood pressure which gradually improved to the 160s and 170s over the course of the visit. No signs of an infectious process, no fever and no consolidation on imaging Findings and discharge diagnosis discussed with patient/family followed by verbalization of understanding Return precautions discussed with patient/family whom verbalize understanding of diagnosis and plan Discharge Plan Departure Patient Disposition: Home Clinical Impression: COPD (chronic obstructive pulmonary disease) Instructions: Chronic Obstructive Pulmonary Disease Activity Restrictions/Additional Instructions: *You have been diagnosed with [Acute COPD Exacerbation ] *What to do: *Please continue to take your regular medications as directed. [ x] New medication prescriptions sent to your pharmacy: [ [facility]] [ ] New medication written as a paper prescription [ ] No new medications given *Please follow up with your primary care provider in 2-3 days, call for an appointment. Let them know you were seen in the Emergency Department and that we ask that you be seen in follow up. We will electronically transmit a record of today's note if your PCP is in our system *If you do not have a primary care provider please contact the [facility] Resource line at [phone]. They will ask some questions about your medical history and help get you set up with a doctor in the community. *Return to Emergency Department if you should have any new, worsening or concerning symptoms, such as [fever greater than 101 F, shaking chills, worsening pain, persistent vomiting or other bothersome symptoms] Prescriptions: New prednisone 10 mg tablet See Rx Instructions .ROUTE .COMPLEX Qty: 30 0RF Rx Instructions: Day 1,2,3: 40mg PO Daily Day 4,5,6: 30mg PO Daily Day 7,8,9: 20mg PO Daily Day 10,11,12: 10mg PO Daily #30 No Action ibuprofen 200 mg tablet 400 mg PO BID PRN tamsulosin 0.4 mg Capsule 0.4 mg PO DAILY nicotine 14 mg/24 hr Patch 24 Hour 1 patch TRANSDERMAL Q24H tamsulosin 0.4 mg capsule 0.4 mg PO DAILY Qty: 30 12RF varenicline [[facility] Starting Month Box] 0.5 mg (11)- 1 mg (42) tablets,dose pack See Rx Instructions PO PER PKG DIR Rx Instructions: PO PER PKG DIR Referrals: Ginette Gardiner PA-C [Primary Care Provider] - Stand Alone Forms: Patient Portal/API
[2023-05-09] MEDS: methylPREDNISolone 125 MG/2 ML VIAL IV (20:07)
[2023-05-09] MEDS: ALBUTEROL/IPRATROPIUM 3 ML AMPUL INH (20:09)
[2023-05-09 20:16] LABS: Add Manual Diff / Slide Review NO; Basophils Absolute Auto 100 /uL (0-100); Eosinophils Absolute Auto 300 /uL (0-450); Eosinophils Percent Auto 3.1 % (2-4); Hematocrit 40.3 % (41-53); Hemoglobin 14.1 g/dL (13.5-17.5); Lymphocytes Absolute Auto 3700 /uL (1100-4500); Lymphocytes Percent Auto 35.6 % (25-40); Mean Corpuscular HGB Conc 34.9 % (30-36); Mean Corpuscular Volume 86.1 fL (80-100); Monocytes Absolute Auto 900 /uL (0-900); Monocytes Percent Auto 8.8 % (3-14); Neutrophils Absolute Auto 5400 /uL (1500-7000); Neutrophils Percent Auto 51.5 % (50-75); Platelet Count 243 X10^3/uL (150-400); Red Blood Cell Count 4.68 X10^6/uL (4.5-5.9); Red Cell Distribution Width 13.7 % (11.6-14.8); White Blood Cell Count 10.4 X10^3/uL (4.5-11.0)
[2023-05-09] MEDS: ALBUTEROL 2.5 MG/3 ML NEB (ADULT) 20 MG INH (20:17)
[2023-05-09 20:22] LABS: Prothrombin Time 11.3 SECONDS (10.1-12.7)
[2023-05-09 20:25] LABS: Lactate (Lactic Acid) 2.3 mmol/L (0.7-2.1)
[2023-05-09 20:26] LABS: Alanine Aminotransferase 42 IU/L (<50); Albumin 4.8 g/dL (3.5-5.0); Albumin Globulin Ratio 1.2 (1.0-2.8); Alkaline Phosphatase 68 U/L (38-126); Aspartate Aminotransferase 44 IU/L (17-59); BUN Creatinine Ratio 14.9 (6-22); Bilirubin Total 0.5 mg/dL (0.2-1.3); Blood Urea Nitrogen 15 mg/dL (9-20); Calcium 9.3 mg/dL (8.4-10.2); Carbon Dioxide 23 mmol/L (22-32); Chloride 102 mmol/L (98-107); Estimated Glomerular Filt Rate > 60 mL/min (>60); Glucose 161 mg/dL (80-110); HEMOLYSIS < 15 (0-50); Potassium 3.9 mmol/L (3.4-5.1); Sodium 139 mmol/L (137-145); Total Protein 8.8 g/dL (6.3-8.2)
[2023-05-09 20:27] LABS: Creatine Kinase 629 U/L (55-170); Lipase 74 U/L (23-300); Magnesium 1.8 mg/dL (1.6-2.3)
[2023-05-09 20:36] LABS: D Dimer 1051 ng/ml (<500)
[2023-05-09 20:39] LABS: NT-proBNP (BNP-Adult 18+) 147 pg/mL (<125); Troponin I < 0.012 ng/mL (0.01-0.034)
--- NOTE | 2023-05-09 20:40 | DI.CT.S_ITS ---
PROCEDURE: CT ANGIO CHEST PE PROTOCOL INDICATIONS: sudden severe SOB, critical Dimer TECHNIQUE: After the administration of intravenous contrast, 2 mm thick sections acquired from the pulmonary apices to the posterior costophrenic angles. 3-dimensional maximum intensity projection (MIP) coronal and sagittal reformats were then acquired through the thorax. For radiation dose reduction, the following was used: automated exposure control, adjustment of mA and/or kV according to patient size. COMPARISON: None. FINDINGS: Image quality: Excellent. Pulmonary arteries: Pulmonary arteries are normal in size, and demonstrate no intraluminal filling defects to suggest central pulmonary embolism. Lower Neck: No lymphadenopathy by size criteria. Thyroid: Visualized thyroid demonstrates no discrete nodules. Axillae: No lymphadenopathy by size criteria. Chest Wall: Unremarkable. Bones: Visualized osseous structures demonstrate no suspicious lesions. Lungs and Airways: No acute consolidation. No suspicious pulmonary nodules. There is a small amount of mucus in the trachea. Pleura: No pneumothorax or pleural effusions. Heart: Heart size is normal. No pericardial effusion. Thoracic Vessels: The thoracic aorta is normal in size. Mediastinum and [place]: No lymphadenopathy by size criteria. Esophagus: No wall thickening. No hiatal hernia. Abdomen: Visualized upper abdominal solid organs appear normal in the early arterial phase of enhancement. IMPRESSION: 1. No evidence of pulmonary embolism. 2. No acute airspace consolidation. Dictated by: Luis Alfredo Shaver M.D. on 05/09/2023 at 22:16 Approved by: Luis Alfredo Shaver M.D. on 05/09/2023 at 22:26
[2023-05-09 20:43] LABS: Procalcitonin 0.07 ng/mL (<0.5)
[2023-05-09 21:03] LABS: Influenza A - CEPHEID Flu A NEGATIVE (NEGATIVE); Influenza B - CEPHEID Flu B NEGATIVE (NEGATIVE); Respiratory Syncytial Virus Negative (Negative)
[2023-05-09 21:08] LABS: COVID-19 CEPHEID 4-PLEX PCR Negative (Negative)
[2023-05-09 22:11] LABS: Reflexed Lactate in 2 Hours Y
[2023-05-09] MEDS: ALBUTEROL HFA PREPACK 1 BOX MISC (22:45)
[2023-05-09 22:59] LABS: Lactate 2HR (Lactic Acid Rflx) 2.2 mmol/L (0.7-2.1)
== END 2023-05-09 23:07 | disposition home or self-care (01) ==
PROVIDERS: Emergency Provider Emergency Medicine; PCP Physician Assistant
DX: J44.9 Chronic obstructive pulmonary disease, unspecified (principal); R06.00 Dyspnea, unspecified; Z20.822 Contact with and (suspected) exposure to COVID-19
CPT/HCPCS: 0241U; 36415; 71045; 71275; 80053; 82550; 83605; 83690; 83735; 83880; 84145; 84484; 85025; 85379; 85610; 93005; 94640; 96374; 99284; J2930; J7613; Q9967

== ENCOUNTER → 2023-07-02 08:41 | Outpatient (CLI) | payer MEDICARE, MEDICAID, SELFPAY ==
[2022-09-25 06:15] VITALS: BMI 25.1
== END ==
PROVIDERS: PCP Physician Assistant; Referring Provider Internal Medicine Critical Care Medicine; Visit Provider Internal Medicine Critical Care Medicine
DX: R06.02 Shortness of breath (principal); Z87.891 Personal history of nicotine dependence; J98.8 Other specified respiratory disorders
CPT/HCPCS: 94060; 94726; 94729

== ENCOUNTER → 2023-07-23 06:24 | Outpatient (CLI) | payer MEDICARE, MEDICAID, SELFPAY ==
[2022-09-25 06:15] VITALS: BMI 25.1
[2023-07-23 09:23] LABS: Prostate Specific Antigen Scrn 2.11 ng/mL (0.1-4.0)
== END ==
PROVIDERS: PCP Physician Assistant; Referring Provider Urology; Visit Provider Urology
DX: Z12.5 Encounter for screening for malignant neoplasm of prostate (principal); N40.1 Benign prostatic hyperplasia with lower urinary tract symptoms; N32.0 Bladder-neck obstruction; R39.9 Unspecified symptoms and signs involving the genitourinary system; R82.81 Pyuria; R39.11 Hesitancy of micturition; Z87.19 Personal history of other diseases of the digestive system; Z87.440 Personal history of urinary (tract) infections
CPT/HCPCS: 36415; 51798; 81002; 87086; 87147; 99214; G0103

== ENCOUNTER → 2023-11-06 08:29 | Outpatient (CLI) | payer MEDICARE, MEDICAID, SELFPAY ==
[2022-09-25 06:15] VITALS: BMI 25.1
== END ==
PROVIDERS: PCP Physician Assistant; Referring Provider Internal Medicine Critical Care Medicine; Visit Provider Internal Medicine Critical Care Medicine
DX: R06.09 Other forms of dyspnea (principal); Z87.891 Personal history of nicotine dependence; J98.8 Other specified respiratory disorders
CPT/HCPCS: 94060; 94726; 94729

== ENCOUNTER 2024-05-14 12:30 | Outpatient (RCR) | payer MEDICARE, MEDICAID, SELFPAY ==
[2022-09-25 06:15] VITALS: BMI 25.1
== END 2024-05-14 14:30 ==
LOC: PUL 12:30
PROVIDERS: PCP Physician Assistant; Referring Provider Internal Medicine Critical Care Medicine; Visit Provider Internal Medicine Critical Care Medicine
DX: J44.9 Chronic obstructive pulmonary disease, unspecified (principal)
CPT/HCPCS: 94625; 94626

== ENCOUNTER → 2024-07-16 09:35 | Outpatient (CLI) | payer OTHER, MEDICAID, SELFPAY ==
[2022-09-25 06:15] VITALS: BMI 25.1
[2024-07-16 11:25] LABS: Prostate Specific Antigen Scrn 1.07 ng/mL (0.1-4.0)
== END ==
PROVIDERS: PCP Physician Assistant; Referring Provider Urology; Visit Provider Urology
DX: Z12.5 Encounter for screening for malignant neoplasm of prostate (principal)
CPT/HCPCS: 36415; G0103

== ENCOUNTER → 2024-08-28 06:56 | Outpatient (CLI) | payer OTHER, SELFPAY ==
[2022-09-25 06:15] VITALS: BMI 25.1
[2024-08-28 07:35] LABS: Add Manual Diff / Slide Review NO; Basophils Absolute Auto 100 /uL (0-100); Eosinophils Absolute Auto 400 /uL (0-450); Eosinophils Percent Auto 5.1 % (2-4); Hematocrit 41.4 % (41-53); Hemoglobin 14.4 g/dL (13.5-17.5); Lymphocytes Absolute Auto 2500 /uL (1100-4500); Lymphocytes Percent Auto 34.8 % (25-40); Mean Corpuscular HGB Conc 34.9 % (30-36); Mean Corpuscular Hemoglobin 31.6 PG (26-34); Mean Corpuscular Volume 90.5 fL (80-100); Monocytes Absolute Auto 500 /uL (0-900); Monocytes Percent Auto 7.7 % (3-14); Neutrophils Absolute Auto 3600 /uL (1500-7000); Neutrophils Percent Auto 51.4 % (50-75); Platelet Count 222 X10^3/uL (150-400); Red Blood Cell Count 4.57 X10^6/uL (4.5-5.9); Red Cell Distribution Width 12.8 % (11.6-14.8); White Blood Cell Count 7.1 X10^3/uL (4.5-11.0)
[2024-08-28 08:09] LABS: Alanine Aminotransferase 39 IU/L (<50); Albumin 4.4 g/dL (3.5-5.0); Albumin Globulin Ratio 1.5 (1.0-2.8); Alkaline Phosphatase 67 U/L (38-126); Aspartate Aminotransferase 40 IU/L (17-59); BUN Creatinine Ratio 12.7 (6-22); Bilirubin Total 0.5 mg/dL (0.2-1.3); Blood Urea Nitrogen 17 mg/dL (9-20); Calcium 9.1 mg/dL (8.4-10.2); Carbon Dioxide 24 mmol/L (22-32); Chloride 104 mmol/L (98-107); Estimated Glomerular Filt Rate 58 mL/min (>60); Globulin 2.9 g/dL (1.7-4.1); Glucose 196 mg/dL (80-110); HEMOLYSIS < 15 (0-50); Potassium 4.5 mmol/L (3.4-5.1); Sodium 136 mmol/L (137-145); Total Protein 7.3 g/dL (6.3-8.2)
== END ==
PROVIDERS: PCP Physician Assistant; Referring Provider Physician Assistant; Visit Provider Physician Assistant
DX: L40.0 Psoriasis vulgaris (principal)
CPT/HCPCS: 36415; 80053; 85025

== ENCOUNTER → 2025-04-28 12:43 | Outpatient (CLI) | payer OTHER, MEDICAID, SELFPAY ==
[2025-03-10 11:01] VITALS: BMI 25.1
--- NOTE | 2025-04-28 12:44 | DI.CT.S_ITS ---
PROCEDURE: CT LUNG LOW DOSE SCREENING INDICATIONS: H/o smoking TECHNIQUE: Noncontrast 2.0-2.5 mm thick sections acquired from the pulmonary apices to the posterior costophrenic angles. 7 mm thick axial MIP, and 5 mm coronal and sagittal reformats were then acquired. For radiation dose reduction, the following was used: automated exposure control, adjustment of mA and/or kV according to patient size. COMPARISON: None. FINDINGS: Image quality: Diagnostic. Lower Neck: No enlarged lymph nodes. Thyroid: No thyroid nodules which require sonographic follow up, per consensus guidelines. Axillae: No enlarged lymph nodes. Chest Wall: Unremarkable. Bones: Unremarkable. Lungs and Pleura: No pneumothorax or pleural effusions. No consolidation or suspicious nodules. Heart: Heart size is normal. Mild coronary artery calcifications. No pericardial effusion. Thoracic Vessels: The aorta and pulmonary arteries demonstrate normal size. Mediastinum and [place]: No enlarged lymph nodes. Esophagus: No wall thickening. No hiatal hernia. Upper Abdomen: Visualized upper abdomen solid organs and bowel loops appear normal. IMPRESSION: No suspicious pulmonary nodules. LUNG-RADS 1; continued annual screening, if eligible. Clinically Significant Non-pulmonary Findings: None. Dictated by: Russ Tom M.D. on 04/28/2025 at 13:59 Approved by: Russ Tom M.D. on 04/28/2025 at 14:03
== END ==
LOC: CT 12:44
PROVIDERS: PCP Physician Assistant; Referring Provider Physician Assistant; Visit Provider Internal Medicine Critical Care Medicine
DX: Z12.2 Encounter for screening for malignant neoplasm of respiratory organs (principal); Z87.891 Personal history of nicotine dependence; I25.10 Atherosclerotic heart disease of native coronary artery without angina pectoris
CPT/HCPCS: 71271

== ENCOUNTER → 2025-07-15 07:07 | Outpatient (CLI) | payer OTHER, MEDICAID, SELFPAY ==
[2025-03-10 11:01] VITALS: BMI 25.1
== END ==
PROVIDERS: Referring Provider Urology; Visit Provider Urology
DX: Z12.5 Encounter for screening for malignant neoplasm of prostate (principal)
CPT/HCPCS: 36415; G0103